=== PATIENT | female | born 1955 | race Caucasian/White ===

== ENCOUNTER → 2022-08-31 18:33 | Outpatient (CLI) | payer MEDICARE, BC, SELFPAY ==
[2022-08-31 15:26] LABS: Anion Gap 13.7 mEq/L (5-15); Blood Urea Nitrogen 18 mg/dl (7-17); Calcium 9.4 mg/dl (8.4-10.2); Carbon Dioxide 27 mmol/L (22.0-30.0); Chloride 105 mmol/L (98-107); Estimated Glomerular Filt Rate 56 ml/min (>60); GFR (African American) 67 ML/MIN (>60); Glucose 84 mg/dl (74-100); Potassium 5.7 mmoL/L (3.5-5.1); Sodium 140 mmol/L (136-145)
== END ==
PROVIDERS: PCP Physician Assistant; Visit Provider Physician Assistant
DX: R25.2 Cramp and spasm (principal)
CPT/HCPCS: 80048

== ENCOUNTER → 2022-09-02 17:06 | Outpatient (CLI) | payer MEDICARE, BC, SELFPAY ==
[2022-09-03 15:57] LABS: Blood Urea Nitrogen 18 mg/dl (7-17); Calcium 8.7 mg/dl (8.4-10.2); Carbon Dioxide 29 mmol/L (22.0-30.0); Chloride 103 mmol/L (98-107); Estimated Glomerular Filt Rate 50 ml/min (>60); GFR (African American) 60 ML/MIN (>60); Glucose 110 mg/dl (74-100); Sodium 138 mmol/L (136-145)
[2022-09-03 18:37] LABS: Anion Gap 11.7 mEq/L (5-15); Potassium 5.7 mmoL/L (3.5-5.1)
== END ==
PROVIDERS: PCP Physician Assistant; Visit Provider Physician Assistant
DX: E87.5 Hyperkalemia (principal)
CPT/HCPCS: 80048

== ENCOUNTER → 2022-09-24 14:26 | Outpatient (CLI) | payer MEDICARE, BC, SELFPAY ==
[2022-09-24 16:18] LABS: Anion Gap 9.9 mEq/L (5-15); Blood Urea Nitrogen 21 mg/dl (7-17); Calcium 9.1 mg/dl (8.4-10.2); Carbon Dioxide 27 mmol/L (22.0-30.0); Chloride 106 mmol/L (98-107); Estimated Glomerular Filt Rate 45 ml/min (>60); GFR (African American) 55 ML/MIN (>60); Glucose 86 mg/dl (74-100); Potassium 4.9 mmoL/L (3.5-5.1); Sodium 138 mmol/L (136-145)
== END ==
PROVIDERS: PCP Physician Assistant; Visit Provider Physician Assistant
DX: E87.5 Hyperkalemia (principal)
CPT/HCPCS: 80048

== ENCOUNTER → 2022-10-04 14:55 | Outpatient (CLI) | payer MEDICARE, BC, SELFPAY ==
--- NOTE | 2022-10-04 14:55 | CA_ITS ---
FINAL REPORT TECHNIQUE: Graded compression, spectral analysis and ultrasound images of the venous system of the right upper extremity were obtained. CLINICAL HISTORY: r/o DVT, RUE erythema, edema, pain, rash x 2 weeks. FINDINGS: The jugular vein, subclavian vein, axillary vein, brachial vein, cephalic vein and basilic venous system are fully compressible and demonstrate no evidence of thrombosis. IMPRESSION: No evidence of thrombosis of the venous system of the right upper extremity. Reviewed, Interpreted and Dictated by Willam Solorzano III, MD Transcribed by Kj Benjamin Authenticated and [facility]
== END ==
PROVIDERS: PCP Physician Assistant; Visit Provider Student in an Organized Health Care Education/Training Program
DX: M79.621 Pain in right upper arm (principal)
CPT/HCPCS: 93971

== ENCOUNTER → 2022-10-12 11:30 | Outpatient (CLI) | payer MEDICARE, BC, SELFPAY ==
[2022-10-12 15:19] LABS: Chloride 106 mmol/L (98-107); Potassium 4.8 mmoL/L (3.5-5.1); Sodium 137 mmol/L (136-145)
[2022-10-12 15:22] LABS: Anion Gap 9.8 mEq/L (5-15); Blood Urea Nitrogen 26 mg/dl (7-17); Calcium 8.6 mg/dl (8.4-10.2); Carbon Dioxide 26 mmol/L (22.0-30.0); Estimated Glomerular Filt Rate 45 ml/min (>60); GFR (African American) 55 ML/MIN (>60); Glucose 75 mg/dl (74-100)
== END ==
PROVIDERS: PCP Physician Assistant; Visit Provider Physician Assistant
DX: I10 Essential (primary) hypertension (principal)
CPT/HCPCS: 80048

== ENCOUNTER → 2022-10-21 09:31 | Outpatient (CLI) | payer BC, MEDICARE, SELFPAY ==
[2022-10-21 10:41] LABS: Basophils # 0.1 K/mm3 (0-0.2); Basophils % 1.1 % (0.1-2.0); Eosinophils # 0.2 K/mm3 (0.0-0.4); Eosinophils % 3.8 % (0.1-12.0); Hematocrit 38.6 % (37.0-47.0); Hemoglobin 12.5 g/dL (12.2-16.2); Lymphocytes # 1.2 K/mm3 (0.7-4.5); Lymphocytes % 24.7 % (10-50); Mean Corpuscular HGB Conc 32.5 g/dL (31.8-35.4); Mean Corpuscular Hemoglobin 27.7 pg (27.0-31.2); Mean Corpuscular Volume 85.2 fl (81-99); Mean Platelet Volume 9.1 fl (7.4-10.4); Monocytes # 0.4 K/mm3 (0.1-1.0); Monocytes % 7.7 % (1.7-9.3); Neutrophils % 62.7 % (37.0-80.0); Platelet Count 216 K/mm3 (142-424); Red Blood Count 4.53 M/mm3 (4.20-5.40); Red Cell Distribution Width 13.2 % (11.5-17.5); White Blood Count 4.8 K/mm3 (4.8-10.8)
[2022-10-21 10:59] LABS: Blood Urea Nitrogen 24 mg/dl (7-17); Calcium 8.7 mg/dl (8.4-10.2); Carbon Dioxide 25 mmol/L (22.0-30.0); Chloride 101 mmol/L (98-107); Estimated Glomerular Filt Rate 45 ml/min (>60); GFR (African American) 55 ML/MIN (>60); Glucose 83 mg/dl (74-100)
[2022-10-21 11:12] LABS: Anion Gap 11.7 mEq/L (5-15); Potassium 4.7 mmoL/L (3.5-5.1); Sodium 133 mmol/L (136-145)
== END ==
PROVIDERS: PCP Physician Assistant; Visit Provider Surgery
DX: L72.3 Sebaceous cyst (principal); Z51.81 Encounter for therapeutic drug level monitoring
CPT/HCPCS: 36415; 80048; 85025

== ENCOUNTER 2022-10-25 09:25 | Day surgery (SDC) | payer MEDICARE, BC, SELFPAY ==
[2022-10-21 10:20] VITALS: BMI 26.5
[2022-10-25 09:45] VITALS: BP 125/85; PULSE 87; RESP 18; TEMP 36.7; O2SAT 100
--- NOTE | 2022-10-25 10:27 | EXP.ANES.CKL ---
[facility] Disclaimer: The information contained in this section may have been updated after the patient was seen, as this information can be updated by other users. Medical History Arthritis Asthma GERD (gastroesophageal reflux disease) History of left heart catheterization Hypertension Hypothyroidism Osteoporosis RA (rheumatoid arthritis) Seasonal allergies Serum potassium elevated Surgical History H/O knee surgery H/O neck surgery H/O wrist surgery History of back surgery History of cholecystectomy History of hysterectomy Hx of appendectomy Family History Other Family history of cardiac disorder Social History Smoking Status: Never smoker alcohol intake: never substance use type: denies use current occupational status: employed Travel in the last 8 weeks: Inside the [place] caffeine: Yes [facility] Anesthesia Checklist Patient Identification Patient Identification: Arm Band Structural Data Admitted From: Home Planned Operative Procedure/s: Excision Sebaceous Cyst on Back Consent for Planned Operative Procedure(s) Verified: Yes Verified Documents: Surgical Consent and History and Physical NPO Status Verified Time NPO: 00:00 Additional verifications Anesthesia Reactions: No Airway Assessment C-Spine Mobility Assessed: Yes TMJ Mobility Assessed: Yes Dentition: Edentulous Neurological Assessment Level of Consciousness: Awake and Alert Anesthesia Plan Anesthesia Risk discussed: Yes Anesthesia Plan: Verified ASA Class: II Anesthesia Type: General
[2022-10-25 11:35] VITALS: BP 113/67; PULSE 90; RESP 15; TEMP 36.3; O2SAT 97
--- NOTE | 2022-10-25 11:37 | P.OP_ITS ---
Date of procedure: 10/25/22 Pre-op Diagnosis:: Sebaceous cyst on back Post-op Diagnosis:: Same Procedure performed:: Excision of sebaceous cyst on back with primary intermediate complexity closure (excisional length approximately 2.0 cm) Surgeon:: Willam Hernandez MD LIGHT FIXTURE SERVICER:: Kristal Titus Anesthesia: MAC and local Estimated blood loss (mL): 5 Operative findings:: Consistent with previously ruptured ill-defined sebaceous cyst Operative note:: Patient was taken to the operating room. She was positioned in right lateral decubitus position. Adequate intravenous sedation was achieved. The area was prepped and draped in the standard surgical fashion. Lesion was marked with a skin marker for planned wide elliptical excision. Local anesthetic was infiltrated. Full-thickness skin incision was made incorporating skin punctum and tiny palpable residual cyst with excision extending to incorporate some of the originally affected skin. Dissection was carried down sharply to normal subcutaneous tissues. Lesion was sent off as a specimen. Hemostasis was achieved with electrocautery. Wound was irrigated. Subdermal tissues were closed with several interrupted 3-0 Vicryl. Skin was closed with interrupted 3- 0 nylon. Clean dry sterile dressing was applied. Condition: stable Disposition: PACU Complications:: None immediately apparent
[2022-10-25 11:45] VITALS: BP 98/68; PULSE 85; RESP 16; O2SAT 97
[2022-10-25 11:55] VITALS: BP 109/65; PULSE 88; RESP 16; O2SAT 97
[2022-10-25 12:05] VITALS: BP 92/60; PULSE 78; RESP 16; O2SAT 94
[2022-10-25 12:15] VITALS: BP 95/58; PULSE 73; RESP 16; O2SAT 100
== END 2022-10-25 12:20 | disposition home or self-care (01) ==
PROVIDERS: PCP Physician Assistant; Visit Provider Surgery
PROC: (CPT 11403; principal; 2022-10-25 10:45)
DX: L72.0 Epidermal cyst (principal); Z79.899 Other long term (current) drug therapy
CPT/HCPCS: 11403; 12032; 88304; 96374

== ENCOUNTER → 2022-11-30 12:01 | Outpatient (CLI) | payer BC, SELFPAY ==
--- NOTE | 2022-11-30 12:08 | XR_ITS ---
FINAL REPORT CLINICAL HISTORY: cough, hard to breath x 3 weeks, non smoker FINDINGS: Two views of the chest were obtained. The heart size and pulmonary vascularity are within normal limits. The mediastinum is normal. No acute pulmonary abnormality is identified. There is no pneumothorax. The bony thorax is intact. IMPRESSION: No active cardiopulmonary disease. Reviewed, Interpreted and Dictated by Willam Solorzano III, MD Transcribed by Lyndsey Mo Authenticated and [facility]
== END ==
LOC: RAD 12:01
PROVIDERS: PCP Physician Assistant; Visit Provider Student in an Organized Health Care Education/Training Program
DX: R05.9 Cough, unspecified (principal)
CPT/HCPCS: 71046

== ENCOUNTER 2022-12-09 13:19 | Emergency (ER) | payer BC, SELFPAY ==
[2022-12-09] VITALS (11 sets, daily range): BP systolic 100–170; BP diastolic 64–96; PULSE 69–98; RESP 14–18; TEMP 36.4–36.7; O2SAT 96–100; BMI 24.7
--- NOTE | 2022-12-09 13:17 | ECG_ITS ---
APPROVED REPORT Exam: Resting ECG HR:85 bpm ECG Measurements Heart Rate 85 AXES CA 146 P 34 QRSd 89 QRS 37 QT 344 T 46 QTc 386 Conclusion SINUS RHYTHM NORMAL ECG UNCONFIRMED REPORT Electronically signed by : Kevan Bonner MD 12/09/2022 21:13:14
--- NOTE | 2022-12-09 13:22 | XR_ITS ---
FINAL REPORT CLINICAL HISTORY: dyspnea COMPARISON: 11/30/2022 FINDINGS: A single portable view of the chest was obtained. The heart size and pulmonary vascularity are within normal limits. The mediastinum is within normal limits. No acute pulmonary abnormality is identified. The bony thorax is intact. IMPRESSION: No active cardiopulmonary disease. Reviewed, Interpreted and Dictated by Willam Solorzano III, MD Transcribed by Patricia Trent Authenticated and [facility]
--- NOTE | 2022-12-09 13:22 | HMH.EDGENADL ---
Discharge Plan Disposition Patient Disposition: Home, Self-Care Prescriptions Prescriptions: No Action methylprednisolone 4 mg tablets,dose pack See Rx Instructions PO PER PKG DIR Qty: 21 0RF Rx Instructions: PO PER PKG DIR ropinirole 0.25 mg tablet 0.25 mg PO DAILY Qty: 30 0RF Rx Instructions: 1-4 PO QHS (titrate until effective for RLS) fluticasone propionate 50 mcg/actuation spray,suspension 1 spray intranasal DAILY Qty: 16 2RF Rx Instructions: administer into each nostril ropinirole 0.5 mg tablet 0.5 mg PO DAILY Qty: 30 2RF fluticasone propion-salmeterol 250-50 mcg/dose blister with device 1 inh inhalation BID omeprazole 40 mg capsule,delayed release(DR/EC) 40 mg PO DAILY levothyroxine 50 mcg tablet 50 mcg PO DAILY lisinopril 10 mg tablet 10 mg PO BID montelukast 10 mg tablet 10 mg PO HS Activity Restrictions/Add. Instructions Additional Instructions/Restrictions: Please follow-up with your primary care doctor regarding your chest pain. Additionally your creatinine was found to be 2.2 increased from a baseline of 1.2 which is an acute kidney injury. Hospitalization was offered but you opted to follow-up close with your primary care doctor regarding this. Please do not overlook this. Aggressively hydrate yourself and I will follow-up early next week at a minimum for recheck of your creatinine. Please return to the emergency department with any worsening chest pain or decreased urine output. Clinical Impressions Clinical Impression: CASSI (acute kidney injury), Chest pain Discharge ED Provider: Enrrique Yoo General Adult HPI General Chief complaint: Chest Pain Stated complaint: chest pain Time Seen by Provider: 12/09/22 13:22 History of Present Illness HPI narrative: Patient is a 67-year-old female presenting with chest pain. This began abruptly 1 hour ago located retrosternal without any radiation with associated dyspnea. No nausea associate with this no exertion associate with this. No fevers chills or cough. She states it feels if there is significant pressure on her chest. She states she has had a heart cath in the past and she has been followed by physicians in [place] has only lived in [place] since June. 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 She is never seen a blue print control clerk here in [place]. Related Data Home Medications Medication Instructions Recorded Confirmed fluticasone 250 mcg-salmeterol 50 1 inh inhalation BID allergies 10/25/22 11/30/22 mcg/dose blistr powdr for inhalation levothyroxine 50 mcg tablet 50 mcg PO DAILY thyroid 10/25/22 11/30/22 lisinopril 10 mg tablet 10 mg PO BID HTN 10/25/22 11/30/22 montelukast 10 mg tablet 10 mg PO HS allergies 10/25/22 11/30/22 omeprazole 40 mg capsule,delayed 40 mg PO DAILY Reflux/Acid reflux 10/25/22 11/30/22 release Previous Rx's Medication Instructions Recorded fluticasone propionate 50 1 spray intranasal DAILY #16 grams 11/23/22 mcg/actuation nasal spray,suspension ropinirole 0.25 mg tablet 0.25 mg PO DAILY RLS #30 tabs 11/23/22 ropinirole 0.5 mg tablet 0.5 mg PO DAILY #30 tabs 11/23/22 methylprednisolone 4 mg tablets in See Rx Instructions PO PER PKG DIR 12/01/22 a dose pack #21 tabs Allergies Allergy/AdvReac Type Severity Reaction Status Date / Time buspirone [From BuSpar] AdvReac Intermediate Verified 11/30/22 11:38 codeine AdvReac Intermediate Verified 11/30/22 11:38 morphine AdvReac Intermediate Verified 11/30/22 11:38 povidone-iodine AdvReac Intermediate Verified 11/30/22 11:38 [facility] Disclaimer: The information contained in this section may have been updated after the patient was seen, as this information can be updated by other users.
--- NOTE | 2022-12-09 13:27 | PC.NURSE ---
Xray at BS
--- NOTE | 2022-12-09 13:30 | PC.NURSE ---
XR AT BEDSIDE
[2022-12-09 13:35] LABS: Basophils # 0.1 K/mm3 (0-0.2); Basophils % 0.7 % (0.1-2.0); Eosinophils # 0.1 K/mm3 (0.0-0.4); Eosinophils % 1.5 % (0.1-12.0); Hemoglobin 12.1 g/dL (12.2-16.2); Lymphocytes # 1.6 K/mm3 (0.7-4.5); Lymphocytes % 24.8 % (10-50); Mean Corpuscular HGB Conc 31.8 g/dL (31.8-35.4); Mean Corpuscular Hemoglobin 27.9 pg (27.0-31.2); Mean Corpuscular Volume 87.8 fl (81-99); Monocytes # 0.6 K/mm3 (0.1-1.0); Monocytes % 8.8 % (1.7-9.3); Neutrophils # 4.1 K/mm3 (1.8-7.8); Neutrophils % 64.2 % (37.0-80.0); Platelet Count 249 K/mm3 (142-424); Red Blood Count 4.33 M/mm3 (4.20-5.40); White Blood Count 6.4 K/mm3 (4.8-10.8)
[2022-12-09 13:43] LABS: Chloride 101 mmol/L (98-107); Sodium 135 mmol/L (136-145)
[2022-12-09 13:46] LABS: Alanine Aminotransferase 20 U/L (12-78); Alkaline Phosphatase 80 U/L (38-126); Aspartate Amino Transferase 25 U/L (14-36); Bilirubin,Total 0.5 mg/dl (0.2-1.3); Blood Urea Nitrogen 24 mg/dl (7-17); Calcium 8.8 mg/dl (8.4-10.2); Carbon Dioxide 23 mmol/L (22.0-30.0); Estimated Glomerular Filt Rate 22 ml/min (>60); GFR (African American) 27 ML/MIN (>60); Glucose 115 mg/dl (74-100); Lipase 229 U/L (23-300); Magnesium 2.2 mg/dl (1.6-2.3)
[2022-12-09 13:47] LABS: Albumin Level 4.5 g/dl (3.5-5.0); Albumin/Globulin Ratio 1.9 (1.1-1.8); Globulin 2.4 g/dL (1.3-3.2); Total Protein,Serum 6.9 g/dl (6.3-8.2)
[2022-12-09 13:52] LABS: Activated Partial Thrombo Time 25.4 seconds (22.8-30.6); INR 1.02 (0.9-1.1)
[2022-12-09 13:56] LABS: NT Pro Brain Natriuretic Pep. 271 pg/mL (0-125)
[2022-12-09 13:58] LABS: D-Dimer 0.62 ug/mL (0.0-0.5)
[2022-12-09 14:01] LABS: Troponin I < 0.01 ng/ml (0.00-0.034)
--- NOTE | 2022-12-09 14:58 | PC.NURSE ---
Rounded on pt, no needs at this time.
--- NOTE | 2022-12-09 16:27 | PC.NURSE ---
GABRIELA EAGLE at for update on POC
[2022-12-09 17:22] LABS: Troponin I < 0.01 ng/ml (0.00-0.034)
== END 2022-12-09 18:15 | disposition home or self-care (01) ==
PROVIDERS: Emergency Provider Student in an Organized Health Care Education/Training Program; PCP Physician Assistant
DX: R07.9 Chest pain, unspecified (principal); N17.9 Acute kidney failure, unspecified
CPT/HCPCS: 36415; 71045; 80053; 83690; 83735; 83880; 84484; 85025; 85378; 85610; 85730; 93005; 96361; 99285

== ENCOUNTER → 2022-12-14 14:31 | Outpatient (CLI) | payer BC, SELFPAY ==
[2022-12-14 14:22] LABS: Chloride 97 mmol/L (98-107); Potassium 4.6 mmoL/L (3.5-5.1); Sodium 134 mmol/L (136-145)
[2022-12-14 14:25] LABS: Anion Gap 15.6 mEq/L (5-15); Blood Urea Nitrogen 19 mg/dl (7-17); Carbon Dioxide 26 mmol/L (22.0-30.0); Estimated Glomerular Filt Rate 56 ml/min (>60); GFR (African American) 67 ML/MIN (>60)
[2022-12-14 14:26] LABS: Glucose 91 mg/dl (74-100)
== END ==
PROVIDERS: PCP Physician Assistant; Visit Provider Physician Assistant
DX: N17.9 Acute kidney failure, unspecified (principal)
CPT/HCPCS: 80048

== ENCOUNTER → 2022-12-28 10:44 | Outpatient (CLI) | payer BC, SELFPAY ==
--- NOTE | 2022-12-28 10:50 | CT_ITS ---
FINAL REPORT CLINICAL HISTORY: right flank mass FINDINGS: Axial CT images of the abdomen and pelvis were obtained without intravenous contrast. Coronal reformatted images were also obtained.This study was performed with techniques to keep radiation doses as low as reasonably achievable (ALARA). Individualized dose reduction techniques using automated exposure control or adjustment of mA and/or kV according to the patient's size were employed. Abdomen: There are 2 nonobstructing right renal stones measuring approximately 5 mm. No hydronephrosis is seen. The patient is status post cholecystectomy. The liver, spleen and pancreas have an unremarkable, unenhanced appearance. No mass or adenopathy is seen. No inflammatory process is identified. Moderate vascular calcifications are noted. Pelvis: Images of the pelvis reveal no evidence of ureteral dilation or ureteral stone.No mass or abnormal fluid collection is identified. The appendix is not visualized. There are postoperative changes in the lower lumbar spine. The patient is status post hysterectomy. IMPRESSION: Nonobstructing right renal stones. No mass or inflammatory process. Reviewed, Interpreted and Dictated by Willam Solorzano III, MD Transcribed by Patricia Trent Authenticated and [facility]
== END ==
LOC: RAD 10:45
PROVIDERS: PCP Physician Assistant; Visit Provider Physician Assistant
DX: R19.00 Intra-abdominal and pelvic swelling, mass and lump, unspecified site (principal)
CPT/HCPCS: 74176

== ENCOUNTER → 2023-01-12 07:10 | Outpatient (CLI) | payer BC, SELFPAY ==
--- NOTE | 2023-01-12 | CA_ITS ---
APPROVED REPORT Exam: Exercise Treadmill Technologist: Amanda Quintana Ht: 5 ft 2 in Wt: 140 lbs BSA: 1.64 m2 HR: 71 bpm BP: 139/74 mmHg Rhythm: NSR Indications: Chest pain Medical History Medications: Lisinopril,,,,, Omeprazole,,,,, Levothyroxine,,,,, Ropinirole,,,,, Montelukast,,,,, ADVAIR,,,,, FluTICASONE,,,,, SuLFAzalazine,,,,, Stress Test Details Test: Robert HR Resting HR: 69 bpm Max Heart Rate (APMHR): 155 bpm Max HR Achieved: 149 bpm Target HR (85% APMHR): 132 bpm % of APMHR: 96 Recovery HR: 86 bpm HR response to stress: Normal HR response to stress BP Resting BP: 139.0/74.0 mmHg Max BP: 146.0/68.0 mmHg Recovery BP: 125.0/67.0 mmHg BP response to stress: Blunted blood pressure response to stress. ECG Resting ECG: Normal sinus rhythm Stress EC.[address] depression ST Change: Horizontal ST depression Arrhythmia: APC's Recovery ECG: Recovery of ST-depression > 7 minutes Clinical Exercise duration: 08:45 min Highest Stage Achieved: Exercise capacity: 10.1 METs Overall Exercise Capacity for Age: Good Stress ECG Conclusion Patient exercised 8:45 on Robert Protocol. Test stopped due to shortness of air, chest pain. Symptoms: Chest pressure/tightness with exercise, slowly resolving in recovery. Arrhythmias/Ectopy: Occasional PAC ST-T Changes: 1.[address] depression Conclusion: Good exercise capacity for age and sex. Blunted BP response to exercise. Abnormal GXT with angina and EKG changes positive for ischemia. Myoview images reported separately. Test Summary REST . . . . . . . Sitting REST . . . . . . . Standing REST 08:06 0.0 0.0 69 . 139/ 74 . . Stage 1 01:00 10.0 1.7 94 . . . . Stage 1 02:00 10.0 1.7 107 . . . . Stage 1 03:00 10.0 1.7 112 . 140/ 70 . . Stage 2 01:00 12.0 2.5 123 . . . . Stage 2 02:00 12.0 2.5 127 . . . . Stage 2 03:00 12.0 2.5 134 . 146/ 68 . . Stage 3 01:00 14.0 3.4 143 . . . . Stage 3 . . . . . . . Chest pain Stage 3 . . . . . . . Myoview Injected Stage 3 02:00 14.0 3.4 147 . . . . Stage 3 02:45 14.0 3.4 148 . . . Stop exercise at 08:45 RECOVERY . . . . . . . chest pressure RECOVERY 01:00 0.0 0.0 127 . . . . RECOVERY 02:00 0.0 0.0 101 . 130/ 72 . . RECOVERY 03:00 0.0 0.0 92 . 132/ 64 . . RECOVERY 04:00 0.0 0.0 89 . 132/ 64 . . RECOVERY 05:00 0.0 0.0 91 . 127/ 62 . . RECOVERY 06:00 0.0 0.0 86 . 127/ 62 . . RECOVERY 07:00 0.0 0.0 85 . 125/ 67 . . RECOVERY 08:00 0.0 0.0 77 . 125/ 67 . . RECOVERY 09:00 0.0 0.0 81 . 125/ 67 . . RECOVERY 10:00 0.0 0.0 75 . 125/ 67 . . RECOVERY 11:00 0.0 0.0 79 . 125/ 67 . . RECOVERY 11:23 0.0 0.0 79 . 125/ 67 . . Electronically signed by : Charlee Hathaway, 01/12/2023 23:23:54
--- NOTE | 2023-01-12 07:10 | NM_ITS ---
APPROVED REPORT Exam: Nuclear Stress Test Indication: chest pain..soa..palptations Patient Location: Outpatient Stress Tech: Amanda Quintana LORNA Tech:Miya Glass SHYAM RT(R)(N) Ht: 5 ft 2 in Wt: 135 lbs Bra Size: 38b HR: 71 bpm BP: 139/74 mmHg BSA: 1.62 m2 TID: 1.21 BMI: 24.6 History: chest pain..soa..palpitation Procedure: Patient exercised on Robert protocol 8:45 minutes and sec, resting heart rate 71 bpm, resting blood pressure 139/74 mmHg, with exercise maximum heart rate achived was 149 bpm which is 96 % of the maximum predicted heart rate and blood pressure was 146/68 mmHg. Patient has exercise capacity, achieved 10.1 METs of workload on treadmill, the blood pressure response to exercise was . Cardiac Stress and Resting SPECT Images: Cardiac Stress and Resting SPECT images were obtained using technetium 99m Myoview 32.9 mCi stress and 10.98 mCi at rest. Resting and stress imaging at supine and prone positions demonstrate a small-sized, mild, predominantly fixed perfusion defect in the distal anterior LV wall with minimal reversibility There is borderline increase in transient ischemic dilatation ratio (TID 1.21). Findings are sugestive of possible balanced ischemia or multivessel disease. Gated imaging demonstrate a low-normal global LV systolic function. LVEF is calculated at 52%. Conclusion: Small-sized, mild, predominantly fixed perfusion defect in the distal anterior LV wall with minimal reversibility Borderline increase in transient ischemic dilatation ratio (TID 1.21). Findings are sugestive of possible balanced ischemia or multivessel disease. Gated imaging demonstrate a low-normal global LV systolic function. LVEF is calculated at 52%. Electronically signed by : Charlee Hathaway, 01/12/2023 23:29:32
--- NOTE | 2023-01-12 07:27 | CT_ITS ---
FINAL REPORT TECHNIQUE: Axial images were obtained through the chest without contrast. CLINICAL HISTORY: chest pain FINDINGS: There are few small scattered mediastinal lymph nodes. The lungs are clear. The heart size is normal. There is no pericardial or pleural effusion. There is scarring in the lingula. There is a small calcified granuloma in the posterior right upper lobe. The gallbladder surgically absent. No suspicious infiltrate or nodule identified. IMPRESSION: No acute process. Reviewed, Interpreted and Dictated by Greyson Torrez MD Transcribed by Lyndsey Carroll Authenticated and [facility]
== END ==
LOC: RAD 07:10
PROVIDERS: PCP Physician Assistant; Visit Provider Physician Assistant
DX: R07.9 Chest pain, unspecified (principal); I10 Essential (primary) hypertension; K21.9 Gastro-esophageal reflux disease without esophagitis; R79.89 Other specified abnormal findings of blood chemistry
CPT/HCPCS: 71250; 78452; 93017; 93306; A9502

== ENCOUNTER 2023-01-20 07:48 | Day surgery (SDC) | payer BC, SELFPAY ==
[2023-01-20] VITALS (11 sets, daily range): BP systolic 92–140; BP diastolic 48–80; PULSE 70–90; RESP 16–20; O2SAT 92–100; BMI 25.6
--- NOTE | 2023-01-20 07:12 | IR_ITS ---
APPROVED REPORT Patient Location: Outpatient PROCEDURES Left heart catheterization Left ventriculogram Selective coronary angiogram INDICATION Angina pectoris, Abnormal CTA, Abnormal stress test Informed consent was obtained prior to the procedure. COMPLICATIONS None Estimated Blood Loss: Less than 10 mls TECHNIQUE One percent lidocaine used to anesthetize the right anterior aspect of the wrist. The right radial artery was accessed via the Seldinger technique. A 6 Upper Sorbian sheath was placed in the right radial artery. 150 mg magnesium sulfate, 800 mcg of nitroglycerin, 1mg Lidocaine and 5000 U Heparin were given through the arterial sheath. The papa catheter was also used to perform left heart catheterization, left ventriculogram and selective coronary angiogram. At the end of the procedure the sheath was removed good hemostasis was achieved using Traclet band, patient was transferred to the postop holding area in stable condition. ANGIOGRAPHIC RESULTS The left main artery Normal The left anterior descending artery Has mild proximal and mid vessel 10% luminal regularities The circumflex artery Nondominant normal The right coronary artery Has proximal 10 to 20% luminal regularities The REAGAN ventriculogram reveals Normal 65% The left ventricular end-diastolic pressure 10 mmHg IMPRESSION Mild luminal irregularities Normal ejection fraction Normal left ventricular end-diastolic pressure PLAN 1. Medical management for coronary disease Electronically signed by : Jerome Logan MD 01/20/2023 10:34:08
[2023-01-20 08:35] LABS: Basophils % 0.7 % (0.1-2.0); Eosinophils # 0.1 K/mm3 (0.0-0.4); Eosinophils % 1.9 % (0.1-12.0); Hematocrit 35.7 % (37.0-47.0); Hemoglobin 11.5 g/dL (12.2-16.2); Lymphocytes % 20.2 % (10-50); Mean Corpuscular HGB Conc 32.2 g/dL (31.8-35.4); Mean Corpuscular Hemoglobin 28.6 pg (27.0-31.2); Mean Corpuscular Volume 88.9 fl (81-99); Mean Platelet Volume 8.8 fl (7.4-10.4); Monocytes # 0.4 K/mm3 (0.1-1.0); Monocytes % 7.3 % (1.7-9.3); Neutrophils # 3.5 K/mm3 (1.8-7.8); Platelet Count 192 K/mm3 (142-424); Red Blood Count 4.02 M/mm3 (4.20-5.40); Red Cell Distribution Width 13.9 % (11.5-17.5); White Blood Count 4.9 K/mm3 (4.8-10.8)
[2023-01-20 08:39] LABS: Chloride 103 mmol/L (98-107); Sodium 139 mmol/L (136-145)
[2023-01-20 08:40] LABS: Potassium 4.6 mmoL/L (3.5-5.1)
[2023-01-20 08:42] LABS: Anion Gap 13.6 mEq/L (5-15); Blood Urea Nitrogen 19 mg/dl (7-17); Carbon Dioxide 27 mmol/L (22.0-30.0); Creatinine Clearance Estimated 56 mL/min (50-200); Estimated Glomerular Filt Rate 56 ml/min (>60); GFR (African American) 67 ML/MIN (>60)
[2023-01-20 08:43] LABS: Calcium 9.1 mg/dl (8.4-10.2); Glucose 92 mg/dl (74-100)
== END 2023-01-20 13:18 | disposition home or self-care (01) ==
PROVIDERS: PCP Physician Assistant; Visit Provider Internal Medicine
DX: I25.118 Atherosclerotic heart disease of native coronary artery with other forms of angina pectoris (principal); R94.39 Abnormal result of other cardiovascular function study; E03.9 Hypothyroidism, unspecified; Z79.899 Other long term (current) drug therapy; I10 Essential (primary) hypertension; Z82.49 Family history of ischemic heart disease and other diseases of the circulatory system; K21.9 Gastro-esophageal reflux disease without esophagitis
CPT/HCPCS: 80048; 85025; 93458; 99152; C1725; C1769; J1644

== ENCOUNTER → 2023-03-24 15:52 | Outpatient (CLI) | payer BC, SELFPAY ==
[2023-03-24 12:58] LABS: Basophils % 0.8 % (0.1-2.0); Eosinophils # 0.2 K/mm3 (0.0-0.4); Eosinophils % 3.2 % (0.1-12.0); Hematocrit 39.1 % (37.0-47.0); Hemoglobin 12.2 g/dL (12.2-16.2); Lymphocytes # 1.4 K/mm3 (0.7-4.5); Lymphocytes % 26.5 % (10-50); Mean Corpuscular HGB Conc 31.2 g/dL (31.8-35.4); Mean Corpuscular Hemoglobin 28.1 pg (27.0-31.2); Mean Platelet Volume 10.3 fl (7.4-10.4); Monocytes # 0.4 K/mm3 (0.1-1.0); Monocytes % 7.5 % (1.7-9.3); Neutrophils # 3.4 K/mm3 (1.8-7.8); Neutrophils % 62.1 % (37.0-80.0); Platelet Count 169 K/mm3 (142-424); Red Blood Count 4.35 M/mm3 (4.20-5.40); Red Cell Distribution Width 12.5 % (11.5-17.5); White Blood Count 5.5 K/mm3 (4.8-10.8)
[2023-03-24 13:41] LABS: Erythrocyte Sedimentation Rate 17 mm/hr (0-30)
[2023-03-24 13:44] LABS: Alanine Aminotransferase 27 U/L (12-78); Albumin Level 4.7 g/dl (3.5-5.0); Albumin/Globulin Ratio 1.7 (1.1-1.8); Alkaline Phosphatase 86 U/L (38-126); Anion Gap 15.8 mEq/L (5-15); Aspartate Amino Transferase 34 U/L (14-36); Bilirubin,Total 0.4 mg/dl (0.2-1.3); Blood Urea Nitrogen 18 mg/dl (7-17); Calcium 9.4 mg/dl (8.4-10.2); Carbon Dioxide 25 mmol/L (22.0-30.0); Chloride 106 mmol/L (98-107); Estimated Glomerular Filt Rate 45 ml/min (>60); GFR (African American) 55 ML/MIN (>60); Globulin 2.7 g/dL (1.3-3.2); Glucose 87 mg/dl (74-100); Magnesium 2.1 mg/dl (1.6-2.3); Potassium 5.8 mmoL/L (3.5-5.1); Sodium 141 mmol/L (136-145); Total Protein,Serum 7.4 g/dl (6.3-8.2)
[2023-03-24 13:51] LABS: Creatine Kinase MB 1.8 ng/ml (0.0-2.03)
[2023-03-24 14:05] LABS: C-Reactive Protein 0.7 mg/L (0-4)
[2023-03-24 14:32] LABS: Vitamin B12 383 pg/mL (239-931)
[2023-03-24 14:54] LABS: Ferritin 26.2 ng/ml (11.1-264)
== END ==
PROVIDERS: PCP Physician Assistant; Visit Provider Physician Assistant
DX: M62.838 Other muscle spasm (principal); E87.5 Hyperkalemia
CPT/HCPCS: 80053; 82553; 82607; 82728; 83735; 85025; 85651; 86140

== ENCOUNTER 2023-03-31 12:49 | Emergency (ER) | payer BC, SELFPAY ==
[2023-03-31 13:38] VITALS: BP 124/69; PULSE 89; RESP 18; TEMP 36.8; O2SAT 97; BMI 25.6
--- NOTE | 2023-03-31 14:04 | EXP.UTC ---
Discharge Plan Disposition Patient Disposition: Home, Self-Care Condition: Good Prescriptions Prescriptions: New ondansetron 4 mg Tablet,Disintegrating 4 mg PO Q8H PRN (Reason: Nausea) Qty: 12 0RF No Action aspirin [Adult Low Dose Aspirin] 81 mg tablet,delayed release (DR/EC) 81 mg PO DAILY Qty: 30 2RF ropinirole 0.25 mg tablet 0.25 mg PO DAILY Qty: 30 0RF Rx Instructions: 1-4 PO QHS (titrate until effective for RLS) pregabalin [Lyrica] 75 mg capsule 75 mg PO BID Qty: 60 0RF rosuvastatin 10 mg tablet See Rx Instructions .ROUTE .COMPLEX Qty: 90 3RF Dose Instruction: Take 1 tablet by mouth once daily Rx Instructions: Take 1 tablet by mouth once daily pramipexole [Mirapex] 0.5 mg tablet 0.5 mg PO BID Qty: 30 2RF fluticasone propion-salmeterol 250-50 mcg/dose blister with device 1 inh inhalation BID omeprazole 40 mg capsule,delayed release(DR/EC) 40 mg PO DAILY levothyroxine 50 mcg tablet 50 mcg PO DAILY lisinopril 10 mg tablet 10 mg PO BID montelukast 10 mg tablet 10 mg PO HS fluticasone propionate 50 mcg/actuation spray,suspension 1 spray intranasal DAILY Rx Instructions: administer into each nostril Referrals Follow up/Referrals: Berna Khan PA [Primary Care Provider] - See instructions Activity Restrictions/Add. Instructions Additional Instructions/Restrictions: Drink plenty of fluids. Take the zofran for nausea/vomiting. Follow up with your regular doctor. GO TO THE ER FOR ANY WORSENING SYMPTOMS Clinical Impressions Clinical Impression: Gastroenteritis Stand Alone Forms Stand Alone Forms: Work/School Release Instructions Patient Instructions: Viral Gastroenteritis, DI for Viral Gastroenteritis -- Adult, Ondansetron Discharge ED Provider: Jer Agustin [facility] General Stated complaint: lightheaded, vomiting, almost passed out Mode of Arrival: Ambulatory Source of Information: Patient Limitations: No Limitations Time Seen by Provider: 03/31/23 13:39 Description of Symptoms (Recalled from Triage Doc. by RN): Patient reports being dizzy, lightheaded, vomiting, can't eat or drink and feels like she could pass out. Patient reports that started Tuesday. HEENT Symptoms (Recalled from RN notes): Yes Resp Symptoms (Recalled from RN notes): No Skin Symptoms (Recalled from RN notes): No MS Symptoms (Recalled from RN notes): No Functional Status (Recalled from RN notes): wnl History of Present Illness Provider Complaint: She states that for the past 1 day she has had n/v/d. Today, she began to feel lightheaded after standing up. She has vomited x2 today and she continues to have diarrhea. She denies abdominal pain. Related Data Home Medications Medication Instructions Recorded Confirmed fluticasone 250 mcg-salmeterol 50 1 inh inhalation BID allergies 10/25/22 03/24/23 mcg/dose blistr powdr for inhalation levothyroxine 50 mcg tablet 50 mcg PO DAILY thyroid 10/25/22 03/24/23 lisinopril 10 mg tablet 10 mg PO BID HTN 10/25/22 03/24/23 montelukast 10 mg tablet 10 mg PO HS allergies 10/25/22 03/24/23 omeprazole 40 mg capsule,delayed 40 mg PO DAILY Reflux/Acid reflux 10/25/22 03/24/23 release fluticasone propionate 50 1 spray intranasal DAILY allergies 01/20/23 03/24/23 mcg/actuation nasal spray,suspension Previous Rx's Medication Instructions Recorded ropinirole 0.25 mg tablet 0.25 mg PO DAILY RLS #30 tabs 11/23/22 aspirin 81 mg tablet,delayed 81 mg PO DAILY #30 tabs 02/08/23 release (Adult Low Dose Aspirin) rosuvastatin 10 mg tablet See Rx Instructions .Route 03/04/23 .COMPLEX #90 tabs pregabalin 75 mg capsule (Lyrica) 75 mg PO BID #60 caps 03/24/23 pramipexole 0.5 mg tablet (Mirapex) 0.5 mg PO BID #30 tabs 03/28/23 ondansetron 4 mg disintegrating 4 mg PO Q8H PRN Nausea #12 tabs 03/31/23 tablet Allergies Allergy/AdvReac Type Severity Reaction Status Date
[2023-03-31 15:16] VITALS: BP 124/69; PULSE 89; RESP 18; TEMP 36.8; O2SAT 97
== END 2023-03-31 15:18 | disposition home or self-care (01) ==
PROVIDERS: Emergency Provider Nurse Practitioner Family; PCP Physician Assistant
DX: K52.9 Noninfective gastroenteritis and colitis, unspecified (principal); R11.2 Nausea with vomiting, unspecified; R42 Dizziness and giddiness; R19.7 Diarrhea, unspecified; I25.10 Atherosclerotic heart disease of native coronary artery without angina pectoris; I11.9 Hypertensive heart disease without heart failure; K21.9 Gastro-esophageal reflux disease without esophagitis; E03.9 Hypothyroidism, unspecified; M06.9 Rheumatoid arthritis, unspecified
CPT/HCPCS: 99204; 99212; G0463

== ENCOUNTER → 2023-04-07 08:43 | Outpatient (POV) | payer BC, SELFPAY ==
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
[2023-04-07 09:09] VITALS: BP 116/78; PULSE 70; RESP 18; O2SAT 100; BMI 25.7
== END ==
PROVIDERS: PCP Physician Assistant; Visit Provider Nurse Practitioner Family
DX: M54.42 Lumbago with sciatica, left side (principal); G89.29 Other chronic pain; M46.1 Sacroiliitis, not elsewhere classified; M54.16 Radiculopathy, lumbar region
CPT/HCPCS: 99202; G0463

== ENCOUNTER → 2023-04-22 07:46 | Outpatient (CLI) | payer BC, SELFPAY ==
--- NOTE | 2023-04-22 07:54 | CA_ITS ---
FINAL REPORT CLINICAL HISTORY: PAIN,NUMBNESS RIGHT WRIST SINCE CATH IN 02/04 COMPARISON: None FINDINGS: Spectral and Doppler waveform evaluations of the right wrist was performed. Spectral analysis was performed. Radial arteries are patent. There is no evidence of pseudoaneurysm or thrombus. IMPRESSION: No pseudoaneurysm or thrombus. Reviewed, Interpreted and Dictated by Willam Solorzano III, MD Transcribed by Izabela Brown Authenticated and [facility]
== END ==
LOC: RT 07:47
PROVIDERS: PCP Physician Assistant; Visit Provider Internal Medicine
DX: M25.531 Pain in right wrist (principal); R20.0 Anesthesia of skin; R20.2 Paresthesia of skin
CPT/HCPCS: 93931

== ENCOUNTER 2023-06-08 16:35 | Emergency (ER) | payer BC, SELFPAY ==
--- NOTE | 2023-06-08 16:38 | XR_ITS ---
PROCEDURE INFORMATION: Exam: XR Left Hand Exam date and time: 06/08/2023 4:40 PM Age: 68 years old Clinical indication: Injury or trauma; Blunt trauma (contusions or hematomas); Patient HX: Pain in left hand after fall yesterday. TECHNIQUE: Imaging protocol: Radiologic exam of the left hand. Views: 3 or more views. COMPARISON: No relevant prior studies available. FINDINGS: Bones/joints: No visible fracture or dislocation. Soft tissues: Normal. IMPRESSION: No visible fracture or dislocation.
--- NOTE | 2023-06-08 16:38 | XR_ITS ---
PROCEDURE INFORMATION: Exam: XR Left Wrist Exam date and time: 06/08/2023 4:42 PM Age: 68 years old Clinical indication: Injury or trauma; Blunt trauma (contusions or hematomas); Patient HX: Left wrist pain after fall yesterday. TECHNIQUE: Imaging protocol: Radiologic exam of the left wrist. Views: 3 or more views. COMPARISON: CR XR HAND LT MIN 3V 06/08/2023 4:40 PM FINDINGS: Bones/joints: No visible fracture or dislocation. No significant periarticular erosive changes to suggest inflammatory arthritis. Soft tissues: Normal. IMPRESSION: 1. No visible fracture or dislocation. 2. No significant periarticular erosive changes to suggest inflammatory arthritis.
[2023-06-08 16:45] VITALS: BP 140/72; PULSE 73; RESP 18; TEMP 36.6; O2SAT 98; BMI 25.6
--- NOTE | 2023-06-08 16:51 | EXP.UTC ---
Discharge Plan Disposition Patient Disposition: Home, Self-Care Condition: Good Prescriptions Prescriptions: No Action pregabalin 75 mg capsule 75 mg PO TID Patient Comments: TAKE 1 CAPSULE BY MOUTH THREE TIMES DAILY omeprazole 40 mg capsule,delayed release(DR/EC) 40 mg PO DAILY levothyroxine 50 mcg tablet 50 mcg PO DAILY lisinopril 10 mg tablet 10 mg PO BID fluticasone propionate 50 mcg/actuation spray,suspension 1 spray intranasal DAILY Rx Instructions: administer into each nostril aspirin [Adult Low Dose Aspirin] 81 mg tablet,delayed release (DR/EC) 81 mg PO DAILY rosuvastatin 10 mg tablet See Rx Instructions .ROUTE .COMPLEX Rx Instructions: Take 1 tablet by mouth once daily fluticasone propion-salmeterol [Advair Diskus] 250-50 mcg/dose blister with device 1 ea INHALATION BID Patient Comments: INHALE 1 PUFF BY MOUTH TWICE DAILY cetirizine 10 mg tablet 10 mg PO DAILY Patient Comments: TAKE 1 TABLET BY MOUTH ONCE DAILY Referrals Follow up/Referrals: Berna Khan PA [Primary Care Provider] - See instructions Valdez Collado DO [Staff Physician] - See instructions Activity Restrictions/Add. Instructions Additional Instructions/Restrictions: Rest the extremity, apply ice for 15 minutes as tolerated three or four times per day, Elevate the extremity as tolerated while you are resting. Follow up with Dr. Collado (orthopedics). Sometimes there can be fractures that don't show up well on the first set of x-rays. So, you should follow up if you continue to have symptoms. I put in a referral but you need to call his office and schedule an appointment. Follow up with your regular doctor. GO TO THE ER FOR ANY WORSENING SYMPTOMS Clinical Impressions Clinical Impression: Left wrist sprain Instructions Patient Instructions: Wrist Sprain, DI for Wrist Sprain Discharge ED Provider: Jer Agustin [facility] General Stated complaint: AO fall 06/07, left wrist pain Time Seen by Provider: 06/08/23 16:51 History of Present Illness Provider Complaint: She states that on 06/07 she fell and came down on her right hand and wrist. Since then she has had pain in that wrist with movement. She denies any other injury. She came in today to have it checked for a fracture because it doesn't seem to be getting better. Related Data Home Medications Medication Instructions Recorded Confirmed levothyroxine 50 mcg tablet 50 mcg PO DAILY thyroid 10/25/22 06/08/23 lisinopril 10 mg tablet 10 mg PO BID HTN 10/25/22 06/08/23 omeprazole 40 mg capsule,delayed 40 mg PO DAILY Reflux/Acid reflux 10/25/22 06/08/23 release fluticasone propionate 50 1 spray intranasal DAILY allergies 01/20/23 05/17/23 mcg/actuation nasal spray,suspension aspirin 81 mg tablet,delayed 81 mg PO DAILY Blood Thinner 04/07/23 05/17/23 release (Adult Low Dose Aspirin) rosuvastatin 10 mg tablet See Rx Instructions .Route 04/07/23 06/08/23 .COMPLEX Cholesterol pregabalin 75 mg capsule 75 mg PO TID 05/03/23 06/08/23 cetirizine 10 mg tablet 10 mg PO DAILY allergies 06/08/23 06/08/23 fluticasone 250 mcg-salmeterol 50 1 ea inhalation BID asthma 06/08/23 06/08/23 mcg/dose blistr powdr for inhalation (Advair Diskus) Allergies Allergy/AdvReac Type Severity Reaction Status Date / Time Iodinated Contrast Media Allergy Verified 06/08/23 16:52 iodine Allergy Verified 06/08/23 16:52 buspirone [From BuSpar] AdvReac Intermediate Verified 06/08/23 16:52 codeine AdvReac Intermediate Verified 06/08/23 16:52 morphine AdvReac Intermediate Verified 06/08/23 16:52 [facility] Disclaimer: The information contained in this section may have been updated after the patient was seen, as this information can be updated by other users. Medical History Abnormal result of cardiovascular function study Kapil
[2023-06-08 17:53] VITALS: BP 140/72; PULSE 73; RESP 18; TEMP 36.6; O2SAT 98
== END 2023-06-08 17:52 | disposition home or self-care (01) ==
PROVIDERS: Emergency Provider Nurse Practitioner Family; PCP Physician Assistant
DX: S63.502A Unspecified sprain of left wrist, initial encounter (principal); I25.10 Atherosclerotic heart disease of native coronary artery without angina pectoris; J45.909 Unspecified asthma, uncomplicated; K21.9 Gastro-esophageal reflux disease without esophagitis; I11.9 Hypertensive heart disease without heart failure; E03.9 Hypothyroidism, unspecified; W19.XXXA Unspecified fall, initial encounter
CPT/HCPCS: 73110; 73130; 99212; 99214; G0463

== ENCOUNTER 2023-09-10 19:00 | Emergency (ER) | payer BC, SELFPAY ==
[2023-09-10 19:05] VITALS: BP 112/69; PULSE 77; RESP 18; TEMP 36.6; O2SAT 96; BMI 24.7
--- NOTE | 2023-09-10 19:17 | EXP.UTC ---
Discharge Plan Disposition Patient Disposition: Home, Self-Care Condition: Good Prescriptions Prescriptions: New prednisone [prednisone] 20 mg tablet 20 mg PO BID Qty: 10 0RF No Action pregabalin 75 mg capsule 75 mg PO TID Patient Comments: TAKE 1 CAPSULE BY MOUTH THREE TIMES DAILY triamcinolone acetonide 0.1 % ointment 1 applic topical BID Qty: 15 0RF levothyroxine 50 mcg tablet 50 mcg PO DAILY Qty: 90 0RF lisinopril 10 mg tablet 10 mg PO BID Qty: 90 0RF omeprazole 40 mg capsule,delayed release(DR/EC) 40 mg PO DAILY fluticasone propionate 50 mcg/actuation spray,suspension 1 spray intranasal DAILY Rx Instructions: administer into each nostril aspirin [Adult Low Dose Aspirin] 81 mg tablet,delayed release (DR/EC) 81 mg PO DAILY rosuvastatin 10 mg tablet See Rx Instructions .ROUTE .COMPLEX Rx Instructions: Take 1 tablet by mouth once daily fluticasone propion-salmeterol [Advair Diskus] 250-50 mcg/dose blister with device 1 ea INHALATION BID Patient Comments: INHALE 1 PUFF BY MOUTH TWICE DAILY cetirizine 10 mg tablet 10 mg PO DAILY Patient Comments: TAKE 1 TABLET BY MOUTH ONCE DAILY Referrals Follow up/Referrals: Berna Khan PA [Primary Care Provider] - See instructions Activity Restrictions/Add. Instructions Additional Instructions/Restrictions: if symptoms worsen retrun follow up with pcp steroids as ordered rotate heat and ice Clinical Impressions Clinical Impression: Muscle strain Stand Alone Forms Stand Alone Forms: Work/School Release Instructions Patient Instructions: DI for Muscle Strain [facility]charge [facility]Natacha [facility] HPI General Stated complaint: sharp pain lower back Mode of Arrival: Ambulatory Source of Information: Patient Limitations: No Limitations Time Seen by Provider: 09/10/23 19:23 Description of Symptoms (Recalled from Triage Doc. by RN): Pt bend down to get dishes out of vinegar maker and as she lifted up she has a sharp pain in lower back. HEENT Symptoms (Recalled from RN notes): No Resp Symptoms (Recalled from RN notes): No Skin Symptoms (Recalled from RN notes): No MS Symptoms (Recalled from RN notes): Yes Functional Status (Recalled from RN notes): n/a History of Present Illness Provider Complaint: 68 yr old female presents for low back pain. Pt bend down to get dishes out of vinegar maker and as she lifted up she has a sharp pain in lower back. pt states pain 05/24. pt does not want muscle relaxers. no loss of bowel or bladder Related Data Home Medications Medication Instructions Recorded Confirmed omeprazole 40 mg capsule,delayed 40 mg PO DAILY Reflux/Acid reflux 10/25/22 07/29/23 release fluticasone propionate 50 1 spray intranasal DAILY allergies 01/20/23 07/29/23 mcg/actuation nasal spray,suspension aspirin 81 mg tablet,delayed 81 mg PO DAILY Blood Thinner 04/07/23 07/29/23 release (Adult Low Dose Aspirin) rosuvastatin 10 mg tablet See Rx Instructions .Route 04/07/23 07/29/23 .COMPLEX Cholesterol pregabalin 75 mg capsule 75 mg PO TID 05/03/23 07/29/23 cetirizine 10 mg tablet 10 mg PO DAILY allergies 06/08/23 07/29/23 fluticasone 250 mcg-salmeterol 50 1 ea inhalation BID asthma 06/08/23 07/29/23 mcg/dose blistr powdr for inhalation (Advair Diskus) Previous Rx's Medication Instructions Recorded triamcinolone acetonide 0.1 % 1 applic topical BID #15 grams 07/29/23 topical ointment levothyroxine 50 mcg tablet 50 mcg PO DAILY thyroid #90 tabs 08/22/23 lisinopril 10 mg tablet 10 mg PO BID HTN #90 tabs 08/31/23 prednisone 20 mg tablet 20 mg PO BID #10 tabs 09/10/23 Allergies Allergy/AdvReac Type Severity Reaction Status Date / Time Iodinated Contrast Media Allergy Verified 09/10/23 19:17 iodine Allergy Verified 09/10/23 19:17 buspirone [From BuSpar] AdvReac Intermediate Verified 09/10/23 19:17 codeine AdvReac Intermediate Verified 09/10/23 19:17 morphine AdvReac Intermediate Verified 09/10/23 19:17 Worker's Comp Is this a Worker's Comp case?: No [facility] Disclaimer: The information contained in this section may have been updated after the patient was seen, as this information can be updated by other users. Medical History , [employer]) Abnormal result of cardiovascular function study Arthritis Asthma Coronary artery disease GERD (gastroesophageal reflux disease) History of left heart catheterization Hypertension Hypothyroidism Numbness and tingling in right hand Osteoporosis RA (rheumatoid arthritis) Right wrist pain Seasonal allergies Serum potassium elevated Typical angina Surgical History , [employer]) H/O knee surgery H/O neck surgery H/O wrist surgery History of back surgery History of cholecystectomy History of hysterectomy Hx of appendectomy Family History , [employer]) Family history of cardiac disorder Social History , [employer]) Smoking Status: Never smoker alcohol intake: never substance use type: denies use current occupational status: retired Travel in the last 8 weeks: None caffeine: Yes ROS Obtained: Yes All systems reviewed & no additional complaints except as documented Constitutional Constitutional: Reports system reviewed and no additional complaints, except as documented Eyes Eyes: Reports system reviewed and no additional complaints, except as documented ENT Ears, Nose, Mouth, and Throat: Reports system reviewed and no additional complaints, except as documented Cardiovascular Cardiovascular: Reports system reviewed and no additional complaints, except as documented Respiratory Respiratory: Reports system reviewed and no additional complaints, except as documented Musculoskeletal Musculoskeletal: Reports system reviewed and no additional complaints, except as documented, Reports as per HPI, Reports arthralgias, Reports back pain, Reports muscle cramps and Reports myalgias Integumentary/Breasts Skin/Breast: Reports system reviewed and no additional complaints, except as documented Neurologic Neurologic: Reports system reviewed and no additional complaints, except as documented Endocrine Endocrine: Reports system reviewed and no additional complaints, except as documented Hematologic/Lymphatic Henatologic/Lymphatic: Reports system reviewed and no additional complaints, except as documented Allergic/Immunologic Allergic/Immunologic: Reports system reviewed and no additional complaints, except as documented Physical Exam General General appearance: alert and in no apparent distress Head Head exam: atraumatic Eye Eye exam: Present normal appearance and PERRL ENT ENT exam: Present normal exam Respiratory Respiratory exam: Present normal lung sounds bilaterally Cardiovascular Cardiovascular exam: Present regular rate and normal rhythm Back Exam Back exam: Present tenderness and muscle spasm Back 1 view image: 1. pain, tednerness Neurological Exam Neurological exam: Present alert and oriented X3 Skin Skin exam: Present warm Medical Decision Making Medical Records Medical records reviewed: Yes I reviewed the patient's medical records. Zenon Inquiry Pt receiving controlled substance: No Zenon was queried for this patient: No Vital Signs: 09/10/23 19:05 Temperature 97.9 F Temperature Source Oral Pulse Rate [Right Radial] 77 Respiratory Rate 18 Blood Pressure [Right Arm] 112/69 Blood Pressure Mean [Right Arm] 83 Blood Pressure Source [Right Arm] Automatic Cuff Blood Pressure Position [Right Arm] Sitting 02 Sat by Pulse Oximetry 96 Oxygen Delivery Method Room Air
--- NOTE | 2023-09-10 19:21 | XR_ITS ---
PROCEDURE INFORMATION: Exam: XR Lumbosacral Spine Exam date and time: 09/10/2023 7:37 PM Age: 68 years old Clinical indication: Low back pain TECHNIQUE: Imaging protocol: Radiologic exam of the lumbosacral spine. Views: 2 or 3 views. COMPARISON: CT ABDOMEN PELVIS WO CON 12/28/2022 10:52 AM FINDINGS: Bones/joints: Orthopedic device noted in the posterior elements centered at the L4 level of the lumbar spine. No vertebral body compression or acute fracture. Significant multilevel facet arthropathy noted throughout the lumbar spine. Disc spaces are well-maintained Soft tissues: Unremarkable. Vasculature: Moderate atherosclerotic calcification of the iliac arteries. IMPRESSION: No acute abnormality
[2023-09-10] MEDS: DEXAMETHASONE 4MG/ML 1ML VIAL 4 MG IM (19:27)
[2023-09-10] MEDS: KETOROLAC 30MG/ML VIAL 15 MG IM (19:27)
[2023-09-10 21:20] VITALS: BP 112/69; PULSE 77; RESP 18; TEMP 36.6; O2SAT 95
== END 2023-09-10 19:53 | disposition home or self-care (01) ==
PROVIDERS: Emergency Provider Nurse Practitioner Family; PCP Physician Assistant
DX: S39.012A Strain of muscle, fascia and tendon of lower back, initial encounter (principal); M62.830 Muscle spasm of back; X50.0XXA Overexertion from strenuous movement or load, initial encounter; K21.9 Gastro-esophageal reflux disease without esophagitis; E03.9 Hypothyroidism, unspecified; I11.9 Hypertensive heart disease without heart failure; I25.119 Atherosclerotic heart disease of native coronary artery with unspecified angina pectoris; M06.9 Rheumatoid arthritis, unspecified
CPT/HCPCS: 72100; 96372; 99212; 99214; G0463

== ENCOUNTER 2023-09-19 10:48 | Emergency (ER) | payer BC, SELFPAY ==
--- NOTE | 2023-09-19 11:06 | EXP.UTC ---
Discharge Plan Disposition Patient Disposition: Home, Self-Care Condition: Good Prescriptions Prescriptions: New cyclobenzaprine 10 mg Tablet 10 mg PO BID PRN (Reason: Muscle Spasm) Qty: 20 0RF methylprednisolone 4 mg Tablets,Dose Pack 4 mg PO DIRECTED 6 Days Qty: 21 0RF Rx Instructions: Take 1 pack as directed for 6 days No Action pregabalin 75 mg capsule 75 mg PO TID Patient Comments: TAKE 1 CAPSULE BY MOUTH THREE TIMES DAILY triamcinolone acetonide 0.1 % ointment 1 applic topical BID Qty: 15 0RF levothyroxine 50 mcg tablet 50 mcg PO DAILY Qty: 90 0RF lisinopril 10 mg tablet 10 mg PO BID Qty: 90 0RF prednisone [prednisone] 20 mg tablet 20 mg PO BID Qty: 10 0RF omeprazole 40 mg capsule,delayed release(DR/EC) 40 mg PO DAILY fluticasone propionate 50 mcg/actuation spray,suspension 1 spray intranasal DAILY Rx Instructions: administer into each nostril aspirin [Adult Low Dose Aspirin] 81 mg tablet,delayed release (DR/EC) 81 mg PO DAILY rosuvastatin 10 mg tablet See Rx Instructions .ROUTE .COMPLEX Rx Instructions: Take 1 tablet by mouth once daily fluticasone propion-salmeterol [Advair Diskus] 250-50 mcg/dose blister with device 1 ea INHALATION BID Patient Comments: INHALE 1 PUFF BY MOUTH TWICE DAILY cetirizine 10 mg tablet 10 mg PO DAILY Patient Comments: TAKE 1 TABLET BY MOUTH ONCE DAILY Referrals Follow up/Referrals: Berna Khan PA [Primary Care Provider] - See instructions Activity Restrictions/Add. Instructions Additional Instructions/Restrictions: Go home and rest. It would be best if you rested tomorrow too. No heavy lifting. No twisting. Take the oral medications as directed. The muscle relaxer (cyclobenzaprine--Flexeril) will make you drowsy, so don't drive or operate heavy machinery after taking it. Don't start the oral steroids (medrol dose pack) until tomorrow, since you had the shots in here today. Follow up with your regular doctor. GO TO THE ER FOR ANY WORSENING SYMPTOMS OR CONCERN, ESPECIALLY BOWEL OR BLADDER ISSUES, SADDLE AREA NUMBNESS, FEVER, ETC Clinical Impressions Clinical Impression: Low back pain with left-sided sciatica Discharge ED Provider: [place] Agustin [facility] [place] General Stated complaint: continued back pain Time Seen by Provider: 09/19/23 11:06 History of Present Illness Provider Complaint: She states that she has continued to have low back pain that radiates down her left leg despite being seen her several days ago and being prescribed prednisone. She states that she has a long history of episodes of this type of pain. She has a history of having 2 low back surgeries related to her history of degenerative disk disease. She states that ususally she needs to have steroid injections into her lower back for this pain. She recently moved here from [place]. She has not saw her back specialist (in [place]) in over 1 year to have those injections. She denies any urinary symptoms or any other symptoms. She denies fever/chills. She denies any recent falls or trauma. Related Data Home Medications Medication Instructions Recorded Confirmed omeprazole 40 mg capsule,delayed 40 mg PO DAILY Reflux/Acid reflux 10/25/22 07/29/23 release fluticasone propionate 50 1 spray intranasal DAILY allergies 01/20/23 07/29/23 mcg/actuation nasal spray,suspension aspirin 81 mg tablet,delayed 81 mg PO DAILY Blood Thinner 04/07/23 07/29/23 release (Adult Low Dose Aspirin) rosuvastatin 10 mg tablet See Rx Instructions .Route 04/07/23 07/29/23 .COMPLEX Cholesterol pregabalin 75 mg capsule 75 mg PO TID 05/03/23 07/29/23 cetirizine 10 mg tablet 10 mg PO DAILY allergies 06/08/23 07/29/23 fluticasone 250 mcg-salmeterol 50 1 ea inhalation BID asthma 06/08/23 07/29/23 mcg/dose blistr powdr for inhalation (Advair Diskus) Previous Rx's Medication Instructions Recorded triamcinolone acetonide 0.1 % 1 applic topical BID #15 grams 07/29/23 topical ointment levothyroxine 50 mcg tablet 50 mcg PO DAILY thyroid #90 tabs 08/22/23 lisinopril 10 mg tablet 10 mg PO BID HTN #90 tabs 08/31/23 prednisone 20 mg tablet 20 mg PO BID #10 tabs 09/10/23 cyclobenzaprine 10 mg tablet 10 mg PO BID PRN Muscle Spasm #20 09/19/23 tabs methylprednisolone 4 mg tablets in 4 mg PO DIRECTED 6 days #21 tabs 09/19/23 a dose pack Allergies Allergy/AdvReac Type Severity Reaction Status Date / Time Iodinated Contrast Media Allergy Verified 09/19/23 11:18 iodine Allergy Verified 09/19/23 11:18 buspirone [From BuSpar] AdvReac Intermediate Verified 09/19/23 11:18 codeine AdvReac Intermediate Verified 09/19/23 11:18 morphine AdvReac Intermediate Verified 09/19/23 11:18 PFSH [facility] Disclaimer: The information contained in this section may have been updated after the patient was seen, as this information can be updated by other users. Medical History , [employer] [place]) Abnormal result of cardiovascular function study Arthritis Asthma Coronary artery disease GERD (gastroesophageal reflux disease) History of left heart catheterization Hypertension Hypothyroidism Numbness and tingling in right hand Osteoporosis RA (rheumatoid arthritis) Right wrist pain Seasonal allergies Serum potassium elevated Typical angina Surgical History , [employer] [place]) H/O knee surgery H/O neck surgery H/O wrist surgery History of back surgery History of cholecystectomy History of hysterectomy Hx of appendectomy Family History , [employer] [place]) Family history of cardiac disorder Social History , [employer] [place]) Smoking Status: Never smoker alcohol intake: never substance use type: denies use current occupational status: retired Travel in the last 8 weeks: None caffeine: Yes ROS Obtained: Yes All systems reviewed & no additional complaints except as documented Constitutional Constitutional: Denies chills and Denies fever(s) Eyes Eyes: Denies eye discharge ENT Ears, Nose, Mouth, and Throat: Denies dizziness, Denies otalgia and Denies sore throat Cardiovascular Cardiovascular: Denies chest pain, Denies dyspnea and Denies dyspnea on exertion Respiratory Respiratory: Denies shortness of breath, Denies chest congestion, Denies cough, Denies dyspnea, Denies dyspnea on exertion, Denies stridor and Denies wheezing Gastrointestinal Gastrointestingal: Denies nausea or vomiting Genitourinary Female Genitourinary: Denies dysuria, Denies urinary frequency, Denies urinary incontinence, Denies urinary hesitancy and Denies urinary urgency Musculoskeletal Musculoskeletal: Reports system reviewed and no additional complaints, except as documented and Denies arthralgias Integumentary/Breasts Skin/Breast: Denies rash Neurologic Neurologic: Denies dizziness and Denies paresthesias Allergic/Immunologic Allergic/Immunologic: Denies wheezing Physical Exam General General appearance: alert and in no apparent distress Head Head exam: atraumatic, normocephalic and normal inspection Eye Eye exam: Present normal appearance, PERRL and EOMI ENT ENT exam: Present normal exam, normal oropharynx, mucous membranes moist, TM's normal bilaterally and normal external ear exam Neck Neck exam: Present normal inspection, full ROM and trachea midline; Absent meningismus or lymphadenopathy Chest Chest inspection: Present normal inspection and symmetric chest wall rise; Absent tenderness Respiratory Respiratory exam: Present normal lung sounds bilaterally; Absent respiratory distress Cardiovascular Cardiovascular exam: Present regular rate and normal rhythm; Absent JVD Abdominal Exam Abdominal exam: Present soft and normal bowel sounds; Absent distention, tenderness or guarding Extremities Exam Extremities exam: Present normal inspection, full ROM and normal capillary refill; Absent calf tenderness Back Exam Back exam: Present normal inspection; Absent tenderness Neurological Exam Neurological exam: Present alert, oriented X3, CN II-XII intact, normal gait and reflexes normal; Absent motor sensory deficit Expanded Neurological Exam Cranial nerves: Normal: EOM function (II, III, IV, ), facial sensation (V), facial palsy (VII), gag reflex (IX), spinal accessory function (XI) and tongue deviation (XII) Cerebellar function: normal gait Motor strength - LUE: 5/5 Motor strength - RUE: 5/5 Motor strength - LLE: 5/5 Motor strength - RLE: 5/5 Sensory exam upper extremity: Normal: light touch and 2 point discrimination Sensory exam lower extremity: Normal: light touch and 2 point discrimination DTR: 2+: biceps (L), biceps (R), patellar (L), patellar (R), Achilles tendon (L) and Achilles tendon (R) Spinal cord function: Absent saddle anesthesia Psychiatric Psychiatric exam: Present normal affect and normal mood Skin Skin exam: Present warm, dry, intact and normal color Lymphatic Lymphatic Findings: no adenopathy Medical Decision Making Medical Records Medical records reviewed: No I reviewed the patient's medical records. Zenon Inquiry Pt receiving controlled substance: No
[2023-09-19 11:11] VITALS: BP 86/56; PULSE 78; RESP 14; TEMP 36.7; O2SAT 99; BMI 24.7
[2023-09-19] MEDS: DEXAMETHASONE 4MG/ML 1ML VIAL 8 MG IM (11:25)
[2023-09-19] MEDS: KETOROLAC 60MG/2ML VIAL 30 MG IM (11:26)
[2023-09-19 11:46] VITALS: BP 85/50; PULSE 74; RESP 16; TEMP 36.7
== END 2023-09-19 11:54 | disposition home or self-care (01) ==
PROVIDERS: Emergency Provider Nurse Practitioner Family; PCP Physician Assistant
DX: M54.42 Lumbago with sciatica, left side (principal); M06.9 Rheumatoid arthritis, unspecified; I11.9 Hypertensive heart disease without heart failure; I25.119 Atherosclerotic heart disease of native coronary artery with unspecified angina pectoris; K21.9 Gastro-esophageal reflux disease without esophagitis; E03.9 Hypothyroidism, unspecified
CPT/HCPCS: 96372; 99212; 99214; G0463

== ENCOUNTER 2023-09-26 13:30 | Outpatient (CLI) | payer BC, SELFPAY ==
[2023-09-26 13:48] LABS: Basophils % 0.4 % (0.1-2.0); Eosinophils # 0.4 K/mm3 (0.0-0.4); Eosinophils % 4.1 % (0.1-12.0); Hematocrit 37.3 % (37.0-47.0); Hemoglobin 12.6 g/dL (12.2-16.2); Lymphocytes # 2.1 K/mm3 (0.7-4.5); Lymphocytes % 22.1 % (10-50); Mean Corpuscular HGB Conc 33.8 g/dL (31.8-35.4); Mean Corpuscular Hemoglobin 28.6 pg (27.0-31.2); Mean Corpuscular Volume 84.5 fl (81-99); Monocytes # 0.6 K/mm3 (0.1-1.0); Monocytes % 6.4 % (1.7-9.3); Neutrophils # 6.3 K/mm3 (1.8-7.8); Platelet Count 173 K/mm3 (142-424); Red Blood Count 4.42 M/mm3 (4.20-5.40); Red Cell Distribution Width 13.7 % (11.5-17.5); White Blood Count 9.4 K/mm3 (4.8-10.8)
[2023-09-26 14:34] LABS: Alanine Aminotransferase 27 U/L (12-78); Albumin Level 4.2 g/dl (3.5-5.0); Albumin/Globulin Ratio 1.8 (1.1-1.8); Alkaline Phosphatase 72 U/L (38-126); Anion Gap 12.1 mEq/L (5-15); Aspartate Amino Transferase 27 U/L (14-36); Bilirubin,Total 0.6 mg/dl (0.2-1.3); Blood Urea Nitrogen 28 mg/dl (7-17); Calcium 9.3 mg/dl (8.4-10.2); Carbon Dioxide 25 mmol/L (22.0-30.0); Chloride 102 mmol/L (98-107); Chol/HDL Ratio 2.9 (1-3.5); Cholesterol 223 mg/dl (140-200); Estimated Glomerular Filt Rate 35 ml/min (>60); GFR (African American) 42 ML/MIN (>60); Globulin 2.3 g/dL (1.3-3.2); Glucose 81 mg/dl (74-100); HDL Cholesterol 78 mg/dl (40-60); Potassium 5.1 mmoL/L (3.5-5.1); Sodium 134 mmol/L (136-145); Total Protein,Serum 6.5 g/dl (6.3-8.2); Triglycerides 178 mg/dl (30-150); VLDL Cholesterol 36 mg/dL (0-40)
[2023-09-26 14:44] LABS: Direct LDL Cholesterol 79.61 mg/dL (100-129)
[2023-09-26 14:50] LABS: 25-OH Vitamin D, Total 29.5 ng/mL (30-100)
[2023-09-26 15:04] LABS: Thyroid Stimulating Hormone 1.69 uIU/mL (0.465-4.68)
[2023-09-26 15:23] LABS: Vitamin B12 527 pg/mL (239-931)
[2023-09-26 15:47] LABS: Iron 106 ug/dL (37-170)
[2023-09-26 15:57] LABS: Total Iron Binding Capacity 284 ug/dL (265-497)
[2023-09-26 16:24] LABS: Ferritin 42.9 ng/ml (11.1-264)
== END 2023-09-26 23:59 ==
LOC: LAB.DROPOF 13:31
PROVIDERS: PCP Physician Assistant; Visit Provider Physician Assistant
DX: R42 Dizziness and giddiness (principal); E55.9 Vitamin D deficiency, unspecified; Z79.899 Other long term (current) drug therapy
CPT/HCPCS: 80053; 80061; 82306; 82607; 82728; 83540; 83550; 84443; 85025

== ENCOUNTER 2023-09-27 12:39 | Emergency (ER) | payer BC, SELFPAY ==
[2023-09-27] VITALS (10 sets, daily range): BP systolic 92–106; BP diastolic 54–67; PULSE 65–100; RESP 12–18; TEMP 36.5; O2SAT 98–100; BMI 24.7
--- NOTE | 2023-09-27 12:38 | ECG_ITS ---
APPROVED REPORT Exam: Resting ECG HR:82 bpm ECG Measurements Heart Rate 82 AXES WA 148 P 55 QRSd 85 QRS 61 QT 337 T 52 QTc 375 Conclusion SINUS RHYTHM NORMAL ECG UNCONFIRMED REPORT Electronically signed by : Kevan Bonner MD 09/27/2023 21:53:40
--- NOTE | 2023-09-27 12:50 | XR_ITS ---
FINAL REPORT CLINICAL HISTORY: chest pain COMPARISON: 12/09/2022 FINDINGS: SINGLE-VIEW CHEST The heart size is normal. The mediastinum is normal. The lungs are clear. There is no pneumothorax. IMPRESSION: No acute cardiopulmonary process. Reviewed, Interpreted and Dictated by Willam Solorzano III, MD Transcribed by Lyndsey Carroll Authenticated and [facility]
--- NOTE | 2023-09-27 12:57 | ED_ITS ---
Discharge Plan Disposition Patient Disposition: Home, Self-Care Condition: Good Prescriptions Prescriptions: No Action triamcinolone acetonide 0.1 % ointment 1 applic topical BID Qty: 15 0RF fluticasone propion-salmeterol [Wixela Inhub] 250-50 mcg/dose blister with device 1 inh inhalation BID Qty: 60 5RF levothyroxine 50 mcg tablet 50 mcg PO DAILY Qty: 90 0RF lisinopril 10 mg tablet 10 mg PO BID Qty: 90 0RF cyclobenzaprine 10 mg Tablet 10 mg PO BID PRN (Reason: Muscle Spasm) Qty: 20 0RF omeprazole 40 mg capsule,delayed release(DR/EC) 40 mg PO DAILY aspirin [Adult Low Dose Aspirin] 81 mg tablet,delayed release (DR/EC) 81 mg PO DAILY rosuvastatin 10 mg tablet See Rx Instructions .ROUTE .COMPLEX Rx Instructions: Take 1 tablet by mouth once daily fluticasone propion-salmeterol [Advair Diskus] 250-50 mcg/dose blister with device 1 ea INHALATION BID Patient Comments: INHALE 1 PUFF BY MOUTH TWICE DAILY cetirizine 10 mg tablet 10 mg PO DAILY Patient Comments: TAKE 1 TABLET BY MOUTH ONCE DAILY Referrals Follow up/Referrals: Provider,Referral, MD [Referring] - See instructions Activity Restrictions/Add. Instructions Additional Instructions/Restrictions: As discussed, please follow-up with your primary care physician within the next 48 hours for repeat lab workup to ensure that your creatinine is trending down appropriately in the setting of your CASSI. Please drink plenty of fluids. Please return to the ED for any new or worsening symptoms. Clinical Impressions Clinical Impression: Right-sided chest pain, Diarrhea Discharge ED Provider: Ishmael Morelos Adult HPI General Chief complaint: Chest Pain Stated complaint: cp Time Seen by Provider: 09/27/23 12:49 Mode of Arrival: Ambulatory Source of Information: Patient Limitations: No Limitations Description of Symptoms (Recalled from ER Triage Doc. by RN): pt c/o R sided chest pain that radiates into her R shoulder, nausea, dizziness, being lightheaded, hypotension, and SOA x2h History of Present Illness HPI narrative: 68-year-old female with past medical history significant for hypertension, CAD on 81 mg of aspirin daily, asthma, osteoporosis, RA, RLS, hypothyroidism, GERD, presents today for evaluation concerning right-sided chest pain that began around 9 AM this morning while she was walking at work. She states that she works at [employer]. Her chest pain has been intermittent, sharp on the right side and radiates to her right shoulder. Has had associated nausea without emesis. Also notes dizziness characterized as lightheadedness and has also had decreased p.o. intake. Denies any fevers, chills, shortness of breath, dysuria, hematuria. She does note that she has had diarrhea over the past day noting more than 3 episodes this morning. No further complaints. Related Data Home Medications Medication Instructions Recorded Confirmed omeprazole 40 mg capsule,delayed 40 mg PO DAILY Reflux/Acid reflux 10/25/22 09/26/23 release aspirin 81 mg tablet,delayed 81 mg PO DAILY Blood Thinner 04/07/23 09/26/23 release (Adult Low Dose Aspirin) rosuvastatin 10 mg tablet See Rx Instructions .Route 04/07/23 09/26/23 .COMPLEX Cholesterol cetirizine 10 mg tablet 10 mg PO DAILY allergies 06/08/23 09/26/23 fluticasone 250 mcg-salmeterol 50 1 ea inhalation BID asthma 06/08/23 09/26/23 mcg/dose blistr powdr for inhalation (Advair Diskus) Previous Rx's Medication Instructions Recorded triamcinolone acetonide 0.1 % 1 applic topical BID #15 grams 07/29/23 topical ointment levothyroxine 50 mcg tablet 50 mcg PO DAILY thyroid #90 tabs 08/22/23 lisinopril 10 mg tablet 10 mg PO BID HTN #90 tabs 08/31/23 cyclobenzaprine 10 mg tablet 10 mg PO BID PRN Muscle Spasm #20 09/19/23 tabs fluticasone 250 mcg-salmeterol 50 1 inh inhalation BID #60 ea 09/26/23 mcg/dose blistr powdr for inhalation (Wixela Inhub) Allergies Allergy/AdvReac Type Severity Reaction Status Date / Time Iodinated Contrast Media Allergy Verified 09/19/23 11:18 iodine Allergy Verified 09/19/23 11:18 buspirone [From BuSpar] AdvReac Intermediate Verified 09/19/23 11:18 codeine AdvReac Intermediate Verified 09/19/23 11:18 morphine AdvReac Intermediate Verified 09/19/23 11:18 [facility] Disclaimer: The information contained in this section may have been updated after the patient was seen, as this information can be updated by other users. Medical History (Updated 09/27/23 @ 17:33 by Ishmael Morelos DO) Abnormal result of cardiovascular function study CASSI (acute kidney injury) Arthritis Asthma Coronary artery disease Elevated d-dimer GERD (gastroesophageal reflux disease) History of left heart catheterization Hypertension Hypothyroidism Numbness and tingling in right hand Osteoporosis RA (rheumatoid arthritis) Right flank mass Right wrist pain Seasonal allergies Serum potassium elevated Typical angina Surgical History H/O knee surgery H/O neck surgery H/O wrist surgery History of back surgery History of cholecystectomy History of hysterectomy Hx of appendectomy Family History Other Family history of cardiac disorder Social History Smoking Status: Never smoker alcohol intake: never substance use type: denies use current occupational status: retired Travel in the last 8 weeks: None caffeine: Yes ROS Obtained: Yes All systems reviewed & no additional complaints except as documented Physical Exam General General appearance: alert and in no apparent distress Head Head exam: atraumatic and normocephalic Eye Eye exam: Present normal appearance, PERRL and EOMI ENT ENT exam: Present normal oropharynx and mucous membranes moist Neck Neck exam: Present full ROM; Absent meningismus Respiratory Respiratory exam: Absent respiratory distress, wheezes, stridor or accessory muscle use Cardiovascular Cardiovascular exam: Present normal rhythm Abdominal Exam Abdominal exam: Present soft; Absent distention, tenderness, guarding, rebound or rigidity Neurological Exam Neurological exam: Present alert, oriented X3 and CN II-XII intact; Absent motor sensory deficit Psychiatric Psychiatric exam: Present normal affect and normal mood Skin Skin exam: Present warm and dry Medical Decision Making Medical Records Medical records reviewed: Yes I reviewed the patient's medical records. Zenon Inquiry Pt receiving controlled substance: No Zenon was queried for this patient: No Vital Signs: 09/27/23 12:43 09/27/23 13:00 09/27/23 13:30 Temperature 97.7 F Temperature Source Oral Pulse Rate 100 H 73 Pulse Rate [Left] 88 Respiratory Rate 12 18 14 Blood Pressure 96/54 L 92/54 L Blood Pressure [Right Arm] 98/59 L Blood Pressure Mean [Right Arm] 72 Blood Pressure Source [Right Arm] Automatic Cuff Blood Pressure Position [Right Arm] Sitting 02 Sat by Pulse Oximetry 98 98 100 Oxygen Delivery Method Room Air Room Air Room Air 09/27/23 14:00 09/27/23 14:30 09/27/23 15:00 Temperature Temperature Source Pulse Rate 65 72 68 Pulse Rate [Left] Respiratory Rate 13 13 12 Blood Pressure 104/62 L 104/67 L 94/66 L Blood Pressure [Right Arm] Blood Pressure Mean [Right Arm] Blood Pressure Source [Right Arm] Blood Pressure Position [Right Arm] 02 Sat by Pulse Oximetry 100 100 100 Oxygen Delivery Method Room Air Room Air Room Air 09/27/23 15:30 09/27/23 16:00 09/27/23 16:30 Temperature Temperature Source Pulse Rate 69 69 66 Pulse Rate [Left] Respiratory Rate 12 16 16 Blood Pressure 106/61 L 102/64 L 100/55 L Blood Pressure [Right Arm] Blood Pressure Mean [Right Arm] Blood Pressure Source [Right Arm] Blood Pressure Position [Right Arm] 02 Sat by Pulse Oximetry 100 100 100 Oxygen Delivery Method Room Air Room Air Room Air Lab Data Lab Results 09/27/23 12:40: WBC 9.6, RBC 4.27, Hgb 12.0 L, Hct 36.0 L, MCV 84.4, MCH 28.2, MCHC 33.5, RDW 13.8, Plt Count 210, MPV 9.0, Neut % (Auto) 76.5, Lymph % (Auto) 14.6, [place] % (Auto) 5.7, Eos % (Auto) 3.0, Baso % (Auto) 0.2, Neut # (Auto) 7.4, Lymph # (Auto) 1.4, [place] # (Auto) 0.6, Eos # (Auto) 0.3, Baso # (Auto) 0.0, Sodium 133 L, Potassium 4.7, Chloride 102, Carbon Dioxide 26, Anion Gap 9.7, BUN 32 H, Creatinine 2.40 H D, Estimated Creat Clear 22, Estimated GFR 20 L, Est GFR ( Amer) 24 L D, Glucose 111 H, Calcium 9.0, Total Bilirubin 0.4, AST 28, ALT 27, Alkaline Phosphatase 80, Troponin I < 0.01, Total Protein 6.9, Albumin 4.1, Globulin 2.8, Albumin/Globulin Ratio 1.5 09/27/23 15:42: Sodium 131 L, Potassium 5.4 H, Chloride 104, Carbon Dioxide 25, Anion Gap 7.4, BUN 30 H, Creatinine 2.00 H, Estimated Creat Clear 27, Estimated GFR 25 L, Est GFR ( Amer) 30 L D, Glucose 95, Calcium 8.5, Troponin I < 0.01, SARS-CoV-2 (PCR) Not detected, Influenza A Untype (PCR) Not detected, Influenza Type B (PCR) Not detected 09/27/23 12:40 09/27/23 15:42 Orders (Tests/Meds): ED MEDICATIONS Generic Name Dose Route Start Last Admin Trade Name Freq PRN Reason Stop Dose Admin Sodium Chloride 10 ml 09/27/23 13:44 Sodium Chloride 0.9% 10ml Flush Syringe IV 10/27/23 13:43 NEEDED PRN Maintain IV Site Discontinued Medications Generic Name Dose Route Start Last Admin Trade Name Freq PRN Reason Stop Dose Admin Hydromorphone HCl 0.5 mg 09/27/23 12:56 09/27/23 13:03 Hydromorphone 2mg/Ml Syringe IV 09/27/23 12:57 0.5 mg ONCE ONE Administration Lactated Ringer's 500 mls @ 999 mls/hr 09/27/23 12:56 09/27/23 13:03 Lactated Ringer's 1000 Ml Bag IV 09/27/23 13:26 999 mls/hr .Q31M ONE Administration ORDERS Category Date Time Status Chest XR -- portable [XR chest portable] Stat Exams 09/27/23 12:50 Taken BMP [Basic Metabolic Panel] Stat Lab 09/27/23 15:42 Completed Complete Blood Count Auto Diff Stat Lab 09/27/23 12:40 Completed Comprehensive Metabolic Panel Stat Lab 09/27/23 12:40 Completed Rapid PCR Covid and Flu A/B Stat Lab 09/27/23 15:42 Completed Troponin I Q3H Lab 09/27/23 15:42 Completed Troponin I Q3H Lab 09/27/23 19:00 Ordered Troponin I Stat Lab 09/27/23 12:40 Completed ECG initial [place] Routine Y 09/27/23 12:38 Completed ECG Data Tracing #1: I reviewed this ECG and interpreted as documented below: EKG personally interpreted by me. Normal sinus rhythm with a rate of [address] elevations are noted to suggest ischemia. QTc of 375. HEART Score History (anamnesis): Slightly suspicious ECG: Normal Age: >65 years Risk factors: Atherosclerosis history Troponin: </= normal limit HEART Score: 4 Medical Decision Narrative: 68-year-old female with past medical history significant for hypertension, CAD on 81 mg of aspirin daily, asthma, osteoporosis, RA, RLS, hypothyroidism, GERD, presents today for evaluation concerning right-sided chest pain that began around 9 AM this morning while she was walking at work. She states that she works at [employer]. Her chest pain has been intermittent, sharp on the right side and radiates to her right shoulder. Has had associated nausea without emesis. Also notes dizziness characterized as lightheadedness and has also had decreased p.o. intake. On assessment, she was hemodynamically stable and in no acute distress. Afebrile. Chest was clear to auscultation bilaterally. Abdomen soft nondistended and nontender to palpation. Other physical exam findings were unremarkable. Differential diagnoses include not limited to STEMI, NSTEMI, pleural effusion, pneumonia, costochondritis, viral syndrome, gastroenteritis, diverticulitis considered however patient has not had any fevers or abdominal pain, among others. Lab workup today with WBC of 9.6. Stable anemia with hemoglobin of 12. Hematocrit of 36. Potassium of 5.4. No significant EKG changes were noted. Sodium of 133. Creatinine 2.4 consistent with CASSI in comparison to her baseline creatinine which appears to be from 1.2-1.5. Initial troponin less than 0.01. Second troponin less than 0.01. Chest x-ray was independently interpreted by me and was without any acute cardiopulmonary disease processes. EKG did not show any findings concerning for ischemia. Negative swabs for COVID and influenza. I did give patient a 1 L fluid bolus of LR and repeat her BMP and creatinine trended down to 2.0. On reassessment the patient evan medically stable and in no acute distress. She states that her pain is resolved at this time. I discussed ED workup and results and diagnosis of CASSI. Had interactive discussion with patient concerning my recommendation to admit for further management concerning her CASSI however patient has noted that she desires to go home and has close follow-up with her PCP and can obtain lab workup within the next 48 hours. She also stated that she will drink plenty of fluids tonight to further assist with decreasing her creatinine. Discussed risks versus benefits. She verbalized understanding and agreement. I provided her with strict return ED precautions and instructions concerning PCP follow-up within the next 48 hours. She again verbalized understanding and agreed and was ultimately discharged home hemodynamically stable in no acute distress. Critical Care Critical Care Time Critical Care Time: No
[2023-09-27] MEDS: HYDROMORPHONE 2MG/ML SYRINGE 0.5 MG IV (13:03)
[2023-09-27] MEDS: LACTATED RINGERS 1000ML 500 ML 999 ML IV (13:03)
[2023-09-27 13:04] LABS: Chloride 102 mmol/L (98-107); Potassium 4.7 mmoL/L (3.5-5.1); Sodium 133 mmol/L (136-145)
[2023-09-27 13:07] LABS: Alanine Aminotransferase 27 U/L (12-78); Albumin Level 4.1 g/dl (3.5-5.0); Albumin/Globulin Ratio 1.5 (1.1-1.8); Alkaline Phosphatase 80 U/L (38-126); Anion Gap 9.7 mEq/L (5-15); Aspartate Amino Transferase 28 U/L (14-36); Bilirubin,Total 0.4 mg/dl (0.2-1.3); Blood Urea Nitrogen 32 mg/dl (7-17); Carbon Dioxide 26 mmol/L (22.0-30.0); Creatinine Clearance Estimated 22 mL/min (50-200); Estimated Glomerular Filt Rate 20 ml/min (>60); GFR (African American) 24 ML/MIN (>60); Globulin 2.8 g/dL (1.3-3.2); Total Protein,Serum 6.9 g/dl (6.3-8.2)
[2023-09-27 13:08] LABS: Basophils % 0.2 % (0.1-2.0); Eosinophils # 0.3 K/mm3 (0.0-0.4); Glucose 111 mg/dl (74-100); Lymphocytes # 1.4 K/mm3 (0.7-4.5); Lymphocytes % 14.6 % (10-50); Mean Corpuscular HGB Conc 33.5 g/dL (31.8-35.4); Mean Corpuscular Hemoglobin 28.2 pg (27.0-31.2); Mean Corpuscular Volume 84.4 fl (81-99); Monocytes # 0.6 K/mm3 (0.1-1.0); Monocytes % 5.7 % (1.7-9.3); Neutrophils # 7.4 K/mm3 (1.8-7.8); Neutrophils % 76.5 % (37.0-80.0); Platelet Count 210 K/mm3 (142-424); Red Blood Count 4.27 M/mm3 (4.20-5.40); Red Cell Distribution Width 13.8 % (11.5-17.5); White Blood Count 9.6 K/mm3 (4.8-10.8)
[2023-09-27 13:22] LABS: Troponin I < 0.01 ng/ml (0.00-0.034)
--- NOTE | 2023-09-27 13:55 | PC.NURSE ---
turned pt light off nothing else needed at this time,granddaughter at bs
--- NOTE | 2023-09-27 14:08 | PC.NURSE ---
called radiology to fax report down bc it is not coming across for ER MD to see
[2023-09-27 15:48] LABS: Coronavirus 19, PCR Not Detected (NotDetected); Influenza A, PCR Not Detected (NotDetected); Influenza B, PCR Not Detected (NotDetected)
[2023-09-27 16:09] LABS: Chloride 104 mmol/L (98-107); Potassium 5.4 mmoL/L (3.5-5.1); Sodium 131 mmol/L (136-145)
[2023-09-27 16:12] LABS: Anion Gap 7.4 mEq/L (5-15); Blood Urea Nitrogen 30 mg/dl (7-17); Carbon Dioxide 25 mmol/L (22.0-30.0); Creatinine Clearance Estimated 27 mL/min (50-200); Estimated Glomerular Filt Rate 25 ml/min (>60); GFR (African American) 30 ML/MIN (>60)
[2023-09-27 16:13] LABS: Calcium 8.5 mg/dl (8.4-10.2); Glucose 95 mg/dl (74-100)
[2023-09-27 16:25] LABS: Troponin I < 0.01 ng/ml (0.00-0.034)
== END 2023-09-27 18:04 | disposition home or self-care (01) ==
PROVIDERS: Emergency Provider Emergency Medicine; PCP Physician Assistant
DX: R07.89 Other chest pain (principal); E87.1 Hypo-osmolality and hyponatremia; E87.5 Hyperkalemia; R19.7 Diarrhea, unspecified; I11.9 Hypertensive heart disease without heart failure; I25.119 Atherosclerotic heart disease of native coronary artery with unspecified angina pectoris; K21.9 Gastro-esophageal reflux disease without esophagitis; E03.9 Hypothyroidism, unspecified
CPT/HCPCS: 71045; 80048; 80053; 84484; 85025; 87636; 93005; 96374; 99285

== ENCOUNTER 2023-09-29 08:13 | Outpatient (CLI) | payer BC, SELFPAY ==
[2023-09-29 08:26] LABS: Basophils % 0.4 % (0.1-2.0); Eosinophils # 0.3 K/mm3 (0.0-0.4); Eosinophils % 5.3 % (0.1-12.0); Hemoglobin 11.5 g/dL (12.2-16.2); Lymphocytes # 1.2 K/mm3 (0.7-4.5); Mean Corpuscular Hemoglobin 28.3 pg (27.0-31.2); Mean Corpuscular Volume 83.2 fl (81-99); Mean Platelet Volume 8.9 fl (7.4-10.4); Monocytes # 0.4 K/mm3 (0.1-1.0); Monocytes % 6.8 % (1.7-9.3); Neutrophils # 3.5 K/mm3 (1.8-7.8); Neutrophils % 64.5 % (37.0-80.0); Platelet Count 192 K/mm3 (142-424); Red Blood Count 4.08 M/mm3 (4.20-5.40); Red Cell Distribution Width 13.6 % (11.5-17.5); White Blood Count 5.4 K/mm3 (4.8-10.8)
[2023-09-29 09:07] LABS: Chloride 106 mmol/L (98-107); Potassium 4.7 mmoL/L (3.5-5.1); Sodium 139 mmol/L (136-145)
[2023-09-29 09:10] LABS: Blood Urea Nitrogen 22 mg/dl (7-17); Estimated Glomerular Filt Rate 35 ml/min (>60); GFR (African American) 42 ML/MIN (>60)
[2023-09-29 09:11] LABS: Anion Gap 5.7 mEq/L (5-15); Calcium 8.7 mg/dl (8.4-10.2); Carbon Dioxide 32 mmol/L (22.0-30.0); Glucose 91 mg/dl (74-100)
== END 2023-09-29 23:59 ==
PROVIDERS: PCP Physician Assistant; Visit Provider Physician Assistant
DX: I25.10 Atherosclerotic heart disease of native coronary artery without angina pectoris (principal); I10 Essential (primary) hypertension; E03.9 Hypothyroidism, unspecified; N17.9 Acute kidney failure, unspecified; Z79.899 Other long term (current) drug therapy
CPT/HCPCS: 36415; 80048; 85025

== ENCOUNTER 2023-10-04 08:43 | Outpatient (CLI) | payer BC, SELFPAY ==
[2023-10-04 09:54] LABS: Anion Gap 7.4 mEq/L (5-15); Blood Urea Nitrogen 11 mg/dl (7-17); Carbon Dioxide 29 mmol/L (22.0-30.0); Chloride 107 mmol/L (98-107); Estimated Glomerular Filt Rate 41 ml/min (>60); GFR (African American) 50 ML/MIN (>60); Glucose 95 mg/dl (74-100); Potassium 4.4 mmoL/L (3.5-5.1); Sodium 139 mmol/L (136-145)
== END 2023-10-04 23:59 ==
LOC: LAB 08:44
PROVIDERS: PCP Physician Assistant; Visit Provider Physician Assistant
DX: I95.9 Hypotension, unspecified (principal); N17.9 Acute kidney failure, unspecified; R79.89 Other specified abnormal findings of blood chemistry
CPT/HCPCS: 36415; 80048

== ENCOUNTER 2023-11-03 12:06 | Outpatient (CLI) | payer BC, SELFPAY ==
[2023-11-03 12:51] LABS: Anion Gap 9.1 mEq/L (5-15); Calcium 9.1 mg/dl (8.4-10.2); Carbon Dioxide 25 mmol/L (22.0-30.0); Chloride 107 mmol/L (98-107); Glucose 87 mg/dl (74-100); Potassium 4.1 mmoL/L (3.5-5.1); Sodium 137 mmol/L (136-145)
[2023-11-03 12:57] LABS: Blood Urea Nitrogen 17 mg/dl (7-17); Estimated Glomerular Filt Rate 45 ml/min (>60); GFR (African American) 54 ML/MIN (>60)
== END 2023-11-03 23:59 ==
LOC: LAB 12:06
PROVIDERS: PCP Physician Assistant; Visit Provider Physician Assistant
DX: N17.9 Acute kidney failure, unspecified (principal)
CPT/HCPCS: 36415; 80048

== ENCOUNTER 2024-04-21 12:49 | Emergency (ER) | payer BC, SELFPAY ==
[2024-04-21] VITALS (7 sets, daily range): BP systolic 135–198; BP diastolic 84–115; PULSE 64–91; RESP 16–20; TEMP 36.7–36.9; O2SAT 96–98; BMI 24.7
--- NOTE | 2024-04-21 12:55 | ECG_ITS ---
APPROVED REPORT Exam: Resting ECG HR:92 bpm ECG Measurements Heart Rate 92 AXES FL 161 P 63 QRSd 85 QRS 62 QT 346 T 42 QTc 396 Conclusion SINUS RHYTHM MINIMAL ST DEPRESSION [0.025+ mV ST DEPRESSION] BORDERLINE ECG UNCONFIRMED REPORT Electronically signed by : Jer Yoo, 04/23/2024 14:44:51
--- NOTE | 2024-04-21 13:16 | XR_ITS ---
PROCEDURE INFORMATION: Exam: XR Chest Exam date and time: 04/21/2024 1:27 PM Age: 68 years old Clinical indication: Pain; Right-sided; Additional info: Cp right sided TECHNIQUE: Imaging protocol: Radiologic exam of the chest. Views: 1 view. COMPARISON: CR XR CHEST PORTABLE 09/27/2023 12:50 PM FINDINGS: Lungs: Unremarkable. No consolidation. Pleural spaces: Unremarkable. No pleural effusion. No pneumothorax. Heart/Mediastinum: Unremarkable. No cardiomegaly. Vasculature: Ectatic aorta. Bones/joints: Osteopenia. Degenerative change of the spine and shoulders. Thoracic spine dextrocurvature. Intraperitoneal space: Right upper quadrant clips. IMPRESSION: No acute findings.
--- NOTE | 2024-04-21 13:25 | [facility].EDCP ---
Discharge Plan Disposition Patient Disposition: Home, Self-Care Prescriptions Prescriptions: New nitroglycerin 0.4 mg tablet, sublingual 0.4 mg sublingual Q5M Qty: 30 0RF Rx Instructions: do not exceed 3 doses per episode No Action fluticasone propion-salmeterol [Wixela Inhub] 250-50 mcg/dose blister with device 1 inh inhalation BID Qty: 60 5RF epinephrine 0.3 mg/0.3 mL syringe 0.3 mg SQ Q5-15M PRN Rx Instructions: do not exceed 2 doses per episode prednisone 20 mg tablet 20 mg PO BID Qty: 10 0RF triamcinolone acetonide 0.025 % lotion 1 applic topical BID Qty: 60 1RF amitriptyline 25 mg tablet 25 mg PO HS PRN (Reason: sleep) Qty: 30 2RF levothyroxine 50 mcg tablet See Rx Instructions .ROUTE .COMPLEX Qty: 90 0RF Dose Instruction: TAKE 1 TABLET BY MOUTH ONCE DAILY FOR THYROID Rx Instructions: TAKE 1 TABLET BY MOUTH ONCE DAILY FOR THYROID omeprazole 40 mg capsule,delayed release(DR/EC) See Rx Instructions .ROUTE .COMPLEX Qty: 90 0RF Dose Instruction: TAKE 1 CAPSULE BY MOUTH ONCE DAILY FOR REFLUX/ACID REFLUX Rx Instructions: TAKE 1 CAPSULE BY MOUTH ONCE DAILY FOR REFLUX/ACID REFLUX aspirin [Adult Low Dose Aspirin] 81 mg tablet,delayed release (DR/EC) 81 mg PO DAILY rosuvastatin 10 mg tablet See Rx Instructions .ROUTE .COMPLEX Rx Instructions: Take 1 tablet by mouth once daily cetirizine 10 mg tablet 10 mg PO DAILY Patient Comments: TAKE 1 TABLET BY MOUTH ONCE DAILY Referrals Follow up/Referrals: Berna Khan PA [Primary Care Provider] - See instructions Activity Restrictions/Add. Instructions Additional Instructions/Restrictions: Call your family doctor to establish care for this visit to the emergency department and schedule follow-up within 48 hours to ensure improvement. If you have any worsening of your condition or any other concerning signs or symptoms, return to the emergency department or your primary care doctor for further evaluation. If you begin having chest pain, nitroglycerin as needed. If you need to take nitroglycerin for chest pain, return to the emergency department promptly after cheering up for baby aspirin. Clinical Impressions Clinical Impression: Stable angina Print Language Print Language: [place] Discharge ED Provider: Oscar,Ross A HPI General Chief Complaint: Shortness of Breath/Dyspnea Stated Complaint: pain in upper right chest , light-headed Time Seen by Provider: 04/21/24 12:55 Mode of Arrival: Ambulatory Source of Information: Patient Limitations: No Limitations Description of Symptoms (Recalled from ER Triage Doc. by RN): Patient reports right sided, sharp chest pain that began approx 730 this morning. Also reports and shortness of breath. History of Present Illness HPI narrative: Please note that above description of symptoms, in this electronic medical record under categorization of recalled from ER triage doctor by RN are reflective of an initial nursing assessment, however, is not reflective of my full history and physical exam that was personally taken and clarified. Consequentially, this preceding description of symptoms, which may include the patient's categorized chief complaint in the EMR, do not reflect my personal clinical impression, and the ultimate description of history of present illness and patient stated complaints should be deferred to this section of the note. Unless stated otherwise or congruent with this section of the note, additional signs, symptoms, or incongruence should be interpreted as inaccurate with my clinical impression. Related Data Home Medications ?Medication ?Instructions ?Recorded ?Confirmed aspirin 81 mg tablet,delayed 81 mg PO DAILY Blood Thinner 04/07/23 04/05/24 release (Adult Low Dose Aspirin) rosuvastatin 10 mg tablet See Rx Instructions .Route 04/07/23 04/05/24 .COMPLEX Cholesterol cetirizine 10 mg tablet 10 mg PO DAILY allergies 06/08/23 04/05/24 epinephrine 0.3 mg/0.3 mL 0.3 mg SQ Q5-15M PRN 04/05/24 04/05/24 injection syringe Previous Rx's ?Medication ?Instructions ?Recorded fluticasone 250 mcg-salmeterol 50 1 inh inhalation BID #60 ea 09/26/23 mcg/dose blistr powdr for inhalation (Wixela Inhub) levothyroxine 50 mcg tablet See Rx Instructions .Route 03/26/24 .COMPLEX #90 tabs amitriptyline 25 mg tablet 25 mg PO HS PRN sleep #30 tabs 04/05/24 prednisone 20 mg tablet 20 mg PO BID #10 tabs 04/05/24 triamcinolone acetonide 0.025 % 1 applic topical BID #60 mL 04/05/24 lotion omeprazole 40 mg capsule,delayed See Rx Instructions .Route 04/20/24 release .COMPLEX #90 caps nitroglycerin 0.4 mg sublingual 0.4 mg sublingual Q5M #30 tabs 04/21/24 tablet Allergies Allergy/AdvReac Type Severity Reaction Status Date / Time Iodinated Contrast Media Allergy Verified 04/05/24 13:14 iodine Allergy Verified 04/05/24 13:14 buspirone [From BuSpar] AdvReac Intermediate Verified 04/05/24 13:14 codeine AdvReac Intermediate Verified 04/05/24 13:14 morphine AdvReac Intermediate Verified 04/05/24 13:14 PFSH [facility] Disclaimer: The information contained in this section may have been updated after the patient was seen, as this information can be updated by other users. Medical History (Updated 04/21/24 @ 14:19 by Panda Moore MD) Numbness and tingling in right hand Right wrist pain Coronary artery disease Typical angina Abnormal result of cardiovascular function study Elevated d-dimer Right flank mass CASSI (acute kidney injury) Serum potassium elevated Osteoporosis RA (rheumatoid arthritis) Asthma History of left heart catheterization GERD (gastroesophageal reflux disease) Arthritis Hypothyroidism Seasonal allergies Hypertension Surgical History Hx of appendectomy History of cholecystectomy History of hysterectomy H/O knee surgery H/O wrist surgery H/O neck surgery History of back surgery Family History Other Family history of cardiac disorder Social History Smoking Status: Never smoker alcohol intake: never substance use type: denies use current occupational status: retired Travel in the last 8 weeks: None caffeine: Yes ROS Obtained: Yes All systems reviewed & no additional complaints except as documented Physical Exam General General appearance: alert Neck Neck exam: Present trachea midline Chest Chest inspection: Present normal inspection and symmetric chest wall rise Respiratory Respiratory exam: Present normal lung sounds bilaterally; Absent respiratory distress, wheezes, stridor, accessory muscle use or prolonged expiratory phase Cardiovascular Cardiovascular exam: Present regular rate, normal rhythm and other (Pulses equal and symmetric in upper and lower extremities) Extremities Exam Extremities exam: Absent edema Neurological Exam Neurological exam: Present alert, oriented X3 and CN II-XII intact Skin Skin exam: Present warm and dry; Absent cyanosis, diaphoresis or pallor HEART Score HEART Score HEART Score assessment performed?: Yes History (anamnesis): Slightly suspicious ECG: Non-specific disturbance Age: >65 years Risk factors: 3 or more risk factors Troponin: </= normal limit HEART Score: 5 Critical Care Critical Care Time Critical Care Time: No Medical Decision Making Medical Records Medical records reviewed: Yes I reviewed the patient's medical records. Zenon Inquiry Pt receiving controlled substance: No Zenon was queried for this patient: No Vital Signs Vital Signs: 04/21/24 12:50 Temperature 98.4 F Temperature Source Oral Pulse Rate [Radial] 91 H Respiratory Rate 20 Blood Pressure [Right Arm] 195/113 H Blood Pressure Mean [Right Arm] 140 Blood Pressure Source [Right Arm] Automatic Cuff Blood Pressure Position [Right Arm] Sitting 02 Sat by Pulse Oximetry 98 Oxygen Delivery Method Room Air Lab Data Labs: Lab Results 04/21/24 13:00: WBC 6.1, RBC 4.66, Hgb 13.2, Hct 41.9, MCV 89.9, MCH 28.3, MCHC 31.5 L, RDW 14.2, Plt Count 194, MPV 9.4, Neut % (Auto) 56.7, Lymph % (Auto) 32.8, [place] % (Auto) 6.3, Eos % (Auto) 2.7, Baso % (Auto) 1.5, Neut # (Auto) 3.5, Lymph # (Auto) 2.0, [place] # (Auto) 0.4, Eos # (Auto) 0.2, Baso # (Auto) 0.1, Sodium 139, Potassium 5.1, Chloride 105, Carbon Dioxide 31 H, Anion Gap 8.1, BUN 20 H, Creatinine 1.20 H, Estimated Creat Clear 45, Estimated GFR 45 L, Est GFR ( Amer) 54 L, Glucose 97, Calcium 9.2, Total Bilirubin 0.5, AST 39 H, ALT 23, Alkaline Phosphatase 80, Troponin I < 0.01, NT-Pro-B Natriuret Pep 277 H, Total Protein 7.2, Albumin 4.4, Globulin 2.8, Albumin/Globulin Ratio 1.6, Lipase 158 04/21/24 13:00 04/21/24 13:00 Response Orders (Tests/Meds): ED MEDICATIONS Generic Name Dose Route Start Last Admin Trade Name Freq PRN Reason Stop Dose Admin Nitroglycerin 0.4 mg 04/21/24 13:16 04/21/24 13:26 Nitroglycerin 0.4mg Sl Tablet SL 05/21/24 13:15 0.4 mg Q5MINP PRN Administration Chest Pain Sodium Chloride 10 ml 04/21/24 13:00 Sodium Chloride 0.9% 10ml Flush Syringe IV 05/21/24 12:59 NEEDED PRN Maintain IV Site Discontinued Medications Generic Name Dose Route Start Last Admin Trade Name Dacia PRN Reason Stop Dose Admin Aspirin 324 mg 04/21/24 13:16 04/21/24 13:26 Aspirin 81mg Chewable Tablet PO 04/21/24 13:17 324 mg ONCE ONE Administration ORDERS Category Date Time Status CXR --portable [XR chest portable] Stat Exams 04/21/24 13:16 Taken CBC w/Auto Diff [Complete Blood Count Auto Diff] Stat Lab 04/21/24 13:00 Completed CMP [Comprehensive Metabolic Panel] Stat Lab 04/21/24 13:00 Completed Lipase Stat Lab 04/21/24 13:00 Completed NT Pro Brain Natriuretic Pep. Stat Lab 04/21/24 13:00 Completed Trop I [Troponin I] Stat Lab 04/21/24 13:00 Completed Troponin I Q3H Lab 04/21/24 16:30 Ordered Troponin I Q3H Lab 04/21/24 19:30 Ordered MDM Narrative Medical Decision Narrative: 68-year-old female history of hypertension, hyperlipidemia, CAD presenting with chest pain. Patient states she was driving earlier this morning around 6 or 7 AM when she had acute onset right sided chest pain just under her right clavicle, radiates down toward her right breast. No shortness of breath, nausea, vomiting, but she has felt lightheaded. No syncope. No neurologic deficits. Patient does state that her palms were sweaty at the time which made her more concerned. History was obtained via conversation with patient. On arrival, patient hemodynamically stable, alert, oriented x4, appropriate, GCS 15, moving all extremities spontaneously, pupils equal and reactive to light. Full physical exam performed and significant for very well-appearing female who is in no acute distress. Cardiopulmonary exam within normal limits anteriorly posteriorly bilaterally. No murmurs gallops rubs, pulses equal and symmetric in upper and lower extremities, no lower extremity edema. Differential includes microvascular coronary artery disease, CHF, ACS, AL, coronary artery dissection, pneumothorax, PE, dissection, pericarditis, myocarditis, pneumothorax, aortic aneurysm, pneumonia, bronchitis, among others. Patient was given aspirin, nitroglycerin for symptomatic management and correction of underlying abnormalities. Patient placed on continuous cardiac monitoring and continuous pulse ox with initial blood pressure 195/113, heart rate 1, saturation 98% on room air. Independent interpretation of EKG shows sinus rhythm 92 beats a minute no significant ST or T wave changes concern for acute ischemia. [place] 161, QRS 85, QTc 396. Workup independently interpreted and significant for nonactionable CBC or chemistry. Stable CKD. Troponin undetectable, BNP only mildly elevated to 77. Lipase negative. On independent interpretation of imaging, chest x-ray without acute cardiopulmonary space disease. See radiology read for full review of final results. Heart score 5. On reevaluation, patient blood pressure resolved 130 systolic, having no symptoms at this time. Given patient presentation, workup, history, this most likely represents stable angina. Because undetectable troponin and multiple hours out, repeat troponin was considered, not deemed necessary at this time. Patient has known coronary artery disease, is recommended that she follow-up with the arboreal scientist, she states that she has close follow-up and will call him on Tuesday to schedule further testing. I feel this is appropriate. Close return precautions were given. Because patient at baseline without signs or symptoms of clinical decompensation, deemed appropriate for discharge. Results were relayed to patient who voiced understanding and were agreeable to outpatient management and follow up. I discussed my clinical impression with patient and answered all questions. At this time, the evidence for any other entities in the differential is insufficient to warrant any further testing or ED observation. This was explained as well. Advisory was given that persistent or worsening symptoms require further evaluation. I confirmed the understanding of this discussion. [employer] Developer disclaimer Much of this encounter note is an electronic assistant professor of life sciences spoken language to printed text. Electronic assistant professor of life sciences of the spoken language may permit errors. Although I have reviewed the note, some errors may still exist.
[2024-04-21 13:26] LABS: Basophils # 0.1 K/mm3 (0-0.2); Basophils % 1.5 % (0.1-2.0); Eosinophils # 0.2 K/mm3 (0.0-0.4); Eosinophils % 2.7 % (0.1-12.0); Hematocrit 41.9 % (37.0-47.0); Hemoglobin 13.2 g/dL (12.2-16.2); Lymphocytes % 32.8 % (10-50); Mean Corpuscular HGB Conc 31.5 g/dL (31.8-35.4); Mean Corpuscular Hemoglobin 28.3 pg (27.0-31.2); Mean Corpuscular Volume 89.9 fl (81-99); Mean Platelet Volume 9.4 fl (7.4-10.4); Monocytes # 0.4 K/mm3 (0.1-1.0); Monocytes % 6.3 % (1.7-9.3); Neutrophils # 3.5 K/mm3 (1.8-7.8); Neutrophils % 56.7 % (37.0-80.0); Platelet Count 194 K/mm3 (142-424); Red Blood Count 4.66 M/mm3 (4.20-5.40); Red Cell Distribution Width 14.2 % (11.5-17.5); White Blood Count 6.1 K/mm3 (4.8-10.8)
[2024-04-21] MEDS: ASPIRIN 81MG CHEWABLE TABLET 324 MG PO (13:26)
[2024-04-21] MEDS: NITROGLYCERIN 0.4MG SL TABLET 0.4 MG SL (13:26)
--- NOTE | 2024-04-21 13:32 | PC.NURSE ---
XR AT BEDSIDE
[2024-04-21 13:38] LABS: Chloride 105 mmol/L (98-107)
[2024-04-21 13:39] LABS: Albumin Level 4.4 g/dl (3.5-5.0); Potassium 5.1 mmoL/L (3.5-5.1); Sodium 139 mmol/L (136-145)
[2024-04-21 13:41] LABS: Blood Urea Nitrogen 20 mg/dl (7-17); Creatinine Clearance Estimated 45 mL/min (50-200); Estimated Glomerular Filt Rate 45 ml/min (>60); GFR (African American) 54 ML/MIN (>60)
[2024-04-21 13:42] LABS: Alanine Aminotransferase 23 U/L (12-78); Albumin/Globulin Ratio 1.6 (1.1-1.8); Alkaline Phosphatase 80 U/L (38-126); Anion Gap 8.1 mEq/L (5-15); Aspartate Amino Transferase 39 U/L (14-36); Bilirubin,Total 0.5 mg/dl (0.2-1.3); Calcium 9.2 mg/dl (8.4-10.2); Carbon Dioxide 31 mmol/L (22.0-30.0); Globulin 2.8 g/dL (1.3-3.2); Glucose 97 mg/dl (74-100); Lipase 158 U/L (23-300); Total Protein,Serum 7.2 g/dl (6.3-8.2)
[2024-04-21 13:52] LABS: NT Pro Brain Natriuretic Pep. 277 pg/mL (0-125)
[2024-04-21 13:57] LABS: Troponin I < 0.01 ng/ml (0.00-0.034)
--- NOTE | 2024-04-21 14:13 | PC.NURSE ---
DR RHODES AT BEDSIDE TO UPDATE PT AND FAMILY
== END 2024-04-21 14:40 | disposition home or self-care (01) ==
PROVIDERS: Emergency Provider Emergency Medicine; PCP Physician Assistant
DX: R07.9 Chest pain, unspecified (principal); R06.02 Shortness of breath; R42 Dizziness and giddiness; I25.118 Atherosclerotic heart disease of native coronary artery with other forms of angina pectoris; M06.9 Rheumatoid arthritis, unspecified; E03.9 Hypothyroidism, unspecified; J45.909 Unspecified asthma, uncomplicated; K21.9 Gastro-esophageal reflux disease without esophagitis; I10 Essential (primary) hypertension; E78.5 Hyperlipidemia, unspecified
CPT/HCPCS: 71045; 80053; 83690; 83880; 84484; 85025; 93005; 99285

== ENCOUNTER 2024-05-11 10:54 | Outpatient (CLI) | payer BC, SELFPAY ==
--- NOTE | 2024-05-11 | CA_ITS ---
APPROVED REPORT Exam: Exercise Treadmill Technologist: Penelope Espinal, Ht: 5 ft 2 in Wt: 137 lbs BSA: 1.63 m2 HR: 76 bpm BP: 161/92 mmHg Rhythm: NSR, ST-T abn in lead III and aVF Medical History Medications: Lisinopril,,,,, Levothyroxine,,,,, Aspirin,,,,, AmiTRIPTYLINE,,,,, Nitroglycerin,,,,, Levocetirizine,,,,, CetIRIZINE,,,,, RoSUVASTATIN,,,,, Fexofenadine,,,,, Trelegy,,,,, Epinephrine,,,,, Wixela,,,,, Cardiac Risk Factors: HTN, FHX of CAD Stress Test Details Test: Bassem HR Resting HR: 80 bpm Max Heart Rate (APMHR): 153 bpm Max HR Achieved: 189 bpm Target HR (85% APMHR): 130 bpm % of APMHR: 124 Recovery HR: 140 bpm HR response to stress: Normal HR response to stress BP Resting BP: 153.0/91.0 mmHg Max BP: 164.0/80.0 mmHg Recovery BP: 159.0/76.0 mmHg BP response to stress: Normal blood pressure response to stress. ECG Resting ECG: NSR, ST-T abns in lead 3 and aVF Stress EC mm horizontal ST depression Arrhythmia: PVCs Recovery ECG: Return to baseline within 3 minutes Recovery Arrhythmia: PVCs Clinical Exercise duration: 09:00 min Highest Stage Achieved: Exercise capacity: 10.1 METs Overall Exercise Capacity for Age: Average Stress ECG Conclusion During bassem protocol pt walked 9 minutes. Pt experinced sharp pain around left breast. Ectopy: Rare PVC noted. ST changes: 1mm horizontal ST depression at peak stress Conclusion: Average exercise capacity ECG changes equivocal for ischemia at peak stress. Myoview images reported separately. Test Summary REST . . . . . . . Sitting REST . . . . . . . Standing REST 03:45 0.0 0.0 80 . 153/ 91 . . Stage 1 01:00 10.0 1.7 101 . . . . Stage 1 02:00 10.0 1.7 114 . . . . Stage 1 03:00 10.0 1.7 115 . 164/ 80 . . Stage 2 01:00 12.0 2.5 122 . . . . Stage 2 02:00 12.0 2.5 130 . . . . Stage 2 03:00 12.0 2.5 135 . . . . Stage 3 01:00 14.0 3.4 142 . 160/ 85 . . Stage 3 02:00 14.0 3.4 151 . 160/ 85 . . Stage 3 03:00 14.0 3.4 151 . 160/ 85 . Stop exercise at 09:00 RECOVERY 01:00 0.0 0.0 140 . . . . RECOVERY 02:00 0.0 0.0 121 . 159/ 76 . . RECOVERY 03:00 0.0 0.0 115 . 146/ 78 . . RECOVERY 04:00 0.0 0.0 107 . 146/ 78 . . RECOVERY 05:00 0.0 0.0 100 . 142/ 77 . . RECOVERY 05:20 0.0 0.0 100 . 142/ 77 . . Electronically signed by : Charlee Hathaway MD 05/14/2024 12:26:51
--- NOTE | 2024-05-11 11:02 | CA_ITS ---
APPROVED REPORT EXAM: Comprehensive 2D, Doppler, and color-flow Echocardiogram Rotary Furnace Tender: YAYA Abel, RVS Ht: 5 ft 2 in Wt: 137lbs BSA: 1.63 BP: 145/81 mmHg Indications: CP, CAD, GERD, HTN 2D Dimensions Left Atrium 2.24 cm M-Mode Dimensions RVDd 2.11 cm (0.9-2.6) LA Diam 3.23 cm (1.9-4.0) LVDd 4.96 cm (3.5-5.7) LVDs 3.40 cm (3.5-5.7) IVSd 1.01 cm (0.6-1.1) PWd 1.01 cm (0.6-1.1) EF (Teich) 59.20% EPSs 0.47 cm FS 31.50% EDV (Teich) 116.10 mL TAPSE 1.82 (<1.7) ESV (Teich) 47.40 mL LV Diastology E Decel Time 213 (160-240 msec) E/A Ratio 0.87 MED A' 10.80 cm/s LAT A' 11.30 cm/s Aortic Valve TITO Index 1.07 cm2/m2 AoV Peak Rohit. 126.0 (50-130 cm/s) AO Peak GR. 6.30 mmHg AO Mean GR. 3.20 (<5 mmHg) AO VTI 20.9 (18-25 cm) TITO (VTI) 1.78 (2.5-4.5 cm2) Mitral Valve MV A Velocity 74.0 (40-130 cm/s) E/A Ratio 0.87 Pulmonary Valve DC End VMAX 145.0 cm/s Left Ventricle The left ventricle is normal size. The left ventricular systolic function is normal. The left ventricular ejection fraction is within the normal range. There is normal left ventricular wall thickness. There is normal LV segmental wall motion. The left ventricular diastolic function is normal. LVEF is 55%. Right Ventricle The right ventricle is normal size. The right ventricular systolic function is normal. Atria The left atrium size is normal. The right atrium size is normal. There is no Doppler evidence of interatrial shunt. Aortic Valve Aortic valve opens well. There is no aortic valvular stenosis. No aortic regurgitation is present. Mitral Valve The mitral valve is normal in structure. No evidence of mitral valve stenosis. There is no mitral valve regurgitation noted. Tricuspid Valve The tricuspid valve leaflets are thin and pliable. Trace tricuspid regurgitation. There is insufficient TR jet to estimate RVSP. Pulmonic Valve The pulmonary valve is normal in structure. Trace pulmonic regurgitation. Great Vessels The aortic root is normal in size. The ascending aorta is normal in size. IVC is normal in size and collapses >50% with inspiration. Pericardium There is no pericardial effusion. Other Information Study Quality: Adequate Conclusion Normal biventricular systolic function. No significant valvular stenosis or regurgitation. Electronically signed by : Charlee Hathaway MD 05/14/2024 11:45:29
--- NOTE | 2024-05-11 11:33 | NM_ITS ---
APPROVED REPORT Exam: Nuclear Stress Test Indication: Chest pain, SOB, Palpitations, Fatigue, HTN, High cholesterol, Family history, CAD Patient Location: Outpatient Stress Tech: Penelope Espinal [place] Tech:Mary Choi, ARRT, RT (R)(N) Ht: 5 ft 2 in Wt: 135 lbs Bra Size: 38B HR: 80 bpm BP: 153/91 mmHg BSA: 1.62 m2 TID: 0.97 BMI: 24.6 History: Chest pain, SOB, Palpitations, Fatigue, HTN, High cholesterol, Family history, CAD Procedure: Patient exercised on Robert protocol 9:00 minutes and sec, resting heart rate 80 bpm, resting blood pressure 153/91 mmHg, with exercise maximum heart rate achived was 189 bpm which is 124 % of the maximum predicted heart rate and blood pressure was 164/80 mmHg. Test was stopped due to SOB. Patient denied any complaint of chest pain. Patient has average exercise capacity, achieved 10.1 METs of workload on treadmill, the blood pressure response to exercise was normal. Cardiac Stress and Resting SPECT Images: Cardiac Stress and Resting SPECT images were obtained using technetium 99m Myoview 32.1 mCi stress and 10.86 mCi at rest. Resting and stress imaging in supine and prone positions demonstrate no evidence of fixed or reversible perfusion defects. Gated imaging demonstrates low-normal global LV systolic function. LVEF is calculated at 51%. Conclusion: No evidence of fixed or reversible perfusion defects. Gated imaging demonstrates low-normal global LV systolic function. LVEF is calculated at 51%. Electronically signed by : Charlee Hathaway MD 05/14/2024 12:27:48
[2024-05-11] MEDS: SODIUM CHLORIDE 0.9% 10ML SYR (RAD ONLY) 10 ML IV ×2 (14:04)
[2024-05-11] MEDS: ISOTOPE MYOVIEW (PER STUDY) 1 DOSE IV (14:04)
== END 2024-05-11 23:59 | disposition home or self-care (01) ==
LOC: RT 10:57
PROVIDERS: PCP Physician Assistant; Visit Provider Nurse Practitioner
DX: R07.9 Chest pain, unspecified (principal); R06.00 Dyspnea, unspecified; R94.31 Abnormal electrocardiogram [ECG] [EKG]
CPT/HCPCS: 78452; 93017; 93018; 93306; A9502

== ENCOUNTER 2024-05-30 09:45 | Outpatient (CLI) | payer BC, SELFPAY ==
[2024-05-31 10:14] LABS: Albumin, U <3.0 ug/mL (Not Estab.); Albumin/Creatinine Ratio < 16 mg/g creat (0-29); Creatinine, Urine 19.2 mg/dL (Not Estab.)
[2024-06-01 12:35] LABS: Albumin, U 35.2 % (.); Alpha-1-Globulin, U 10.9 % (.); Alpha-2-Globulin, U 16.6 % (.); Beta Globulin, U 28.7 % (.); Creatinine, Urine 20.1 mg/dL (Not Estab.); Gamma Globulin, U 8.7 % (.); M-Spike, % Not Observed % (Not Observed); Protein,Total,Urine <4.0 mg/dL (Not Estab.)
[2024-06-26 16:06] LABS: PDF: SCANNED IMAGE
== END 2024-05-30 23:59 | disposition home or self-care (01) ==
LOC: LAB.DROPOF 05-31 10:16
PROVIDERS: PCP Internal Medicine; Visit Provider Internal Medicine
DX: N18.9 Chronic kidney disease, unspecified (principal)
CPT/HCPCS: 82043; 82570; 84166

== ENCOUNTER 2024-06-23 13:17 | Emergency (ER) | payer BC, SELFPAY ==
[2024-06-23 13:35] VITALS: BP 107/70; PULSE 89; RESP 19; TEMP 37; O2SAT 99; BMI 24.4
--- NOTE | 2024-06-23 15:00 | ED_ITS ---
Discharge Plan Disposition Patient Disposition: Home, Self-Care Condition: Good Prescriptions Prescriptions: New methylprednisolone [Methylpred DP] 4 mg tablets,dose pack See Rx Instructions .ROUTE .COMPLEX Qty: 21 0RF Rx Instructions: Take according to package instructions amoxicillin-pot clavulanate 875-125 mg tablet 1 tab PO Q12H 10 Days Qty: 20 0RF benzonatate 100 mg capsule 100 mg PO TID PRN (Reason: cough) Qty: 60 0RF No Action fexofenadine 180 mg tablet 180 mg PO DAILY Patient Comments: TAKE 1 TABLET BY MOUTH ONCE DAILY omeprazole 40 mg capsule,delayed release(DR/EC) 40 mg PO DAILY Patient Comments: TAKE 1 CAPSULE BY MOUTH ONCE DAILY FOR REFLUX/ACID REFLUX triamcinolone acetonide 0.025 % cream 1 applic TOPICAL BID Patient Comments: APPLY CREAM TOPICALLY TWICE DAILY levothyroxine 50 mcg tablet 50 mcg PO DAILY Patient Comments: TAKE 1 TABLET BY MOUTH ONCE DAILY lisinopril 10 mg tablet 10 mg PO BID Patient Comments: TAKE 1 TABLET BY MOUTH TWICE DAILY gabapentin 300 mg capsule 300 mg PO TID Patient Comments: TAKE 1 CAPSULE BY MOUTH THREE TIMES DAILY escitalopram oxalate 10 mg tablet 10 mg PO DAILY Patient Comments: TAKE 1 TABLET BY MOUTH ONCE DAILY rosuvastatin 10 mg tablet 10 mg PO HS Patient Comments: TAKE 1 TABLET BY MOUTH ONCE DAILY lactulose [Constulose] 10 gram/15 mL solution 10 g PO DAILY Patient Comments: TAKE 15 SOLUTION BY MOUTH ONCE DAILY NEEDED FOR CONSTIPATION; MAY SLOWLY INCREASE TO 20 OR 30 ML DAILY NEEDED. RESULTS MAY TAKE 24 HOURS. levocetirizine 5 mg tablet 5 mg PO DAILY Patient Comments: TAKE 1 TABLET BY MOUTH ONCE DAILY Trelegy Ellipta 200-62.5-25 mcg blister with device 1 ea INHALATION DAILY Patient Comments: INHALE 1 PUFF ONCE DAILY DIRECTED Referrals Follow up/Referrals: Jerome Donaldson DO [Primary Care Provider] - See instructions Activity Restrictions/Add. Instructions Additional Instructions/Restrictions: Take medication as prescribed. Increase fluids and rest. Follow up with PCP or return to [facility] if symptoms persist or worsen. If you have shortness of air, return to the ER. Clinical Impressions Clinical Impression: Acute lower respiratory infection Instructions Patient Instructions: Acute Bronchitis Print Language Print Language: Puerto Rican Discharge ED Provider: Antonina Mcdermott [facility] HPI General Stated complaint: cough, heavy chest, congestion Mode of Arrival: Ambulatory Source of Information: Patient Limitations: No Limitations Time Seen by Provider: 06/23/24 14:55 Description of Symptoms (Recalled from Triage Doc. by RN): PATIENT C/O COUGH AND CHEST CONGESTION X 3 DAYS HEENT Symptoms (Recalled from RN notes): No Resp Symptoms (Recalled from RN notes): Yes Skin Symptoms (Recalled from RN notes): No MS Symptoms (Recalled from RN notes): No Functional Status (Recalled from RN notes): WNL History of Present Illness Provider Complaint: Pt reports that for the last 3-4 days she has had a strong non-productive cough. She reports that she is losing her voice. She states that she has a hard time laying down because she can't hardly breathe. She reports that the cough is keeping her up at night. Pt states that she has tried OTC cough medication, but this has not helped. Related Data Home Medications ?Medication ?Instructions ?Recorded ?Confirmed escitalopram oxalate 10 mg tablet 10 mg PO DAILY 06/23/24 06/23/24 fexofenadine 180 mg tablet 180 mg PO DAILY 06/23/24 06/23/24 fluticasone fur. 200 mcg-umeclid 1 ea inhalation DAILY 06/23/24 06/23/24 62.5 mcg-vilant 25 mcg inhalat.powder (Trelegy Ellipta) gabapentin 300 mg capsule 300 mg PO TID 06/23/24 06/23/24 lactulose 10 gram/15 mL oral 10 g PO DAILY 06/23/24 06/23/24 solution (Constulose) levocetirizine 5 mg tablet 5 mg PO DAILY 06/23/24 06/23/24 levothyroxine 50 mcg tablet 50 mcg PO DAILY 06/23/24 06/23/24 lisinopril 10 mg tablet 10 mg PO BID 06/23/24 06/23/24 omeprazole 40 mg capsule,delayed 40 mg PO DAILY 06/23/24 06/23/24 release rosuvastatin 10 mg tablet 10 mg PO HS 06/23/24 06/23/24 triamcinolone acetonide 0.025 % 1 applic topical BID 06/23/24 06/23/24 topical cream Previous Rx's ?Medication ?Instructions ?Recorded amoxicillin 875 mg-potassium 1 tab PO Q12H 10 days #20 tabs 11/09/24 clavulanate 125 mg tablet benzonatate 100 mg capsule 100 mg PO TID PRN cough #60 caps 06/23/24 methylprednisolone 4 mg tablets in See Rx Instructions .Route 06/23/24 a dose pack (Methylpred DP) .COMPLEX #21 tabs Allergies Allergy/AdvReac Type Severity Reaction Status Date / Time povidone-iodine Allergy Mild Blister Verified 06/06/24 13:47 [From Betadine] Iodinated Contrast Media Allergy Verified 06/06/24 13:47 iodine Allergy Verified 06/06/24 13:47 buspirone [From BuSpar] AdvReac Intermediate Verified 06/06/24 13:47 codeine AdvReac Intermediate Verified 06/06/24 13:47 morphine AdvReac Intermediate Verified 06/06/24 13:47 Worker's Comp Is this a Worker's Comp case?: No [facility] Disclaimer: The information contained in this section may have been updated after the patient was seen, as this information can be updated by other users. Medical History Numbness and tingling in right hand Right wrist pain Coronary artery disease Typical angina Abnormal result of cardiovascular function study Elevated d-dimer Right flank mass CASSI (acute kidney injury) Serum potassium elevated Osteoporosis RA (rheumatoid arthritis) Asthma History of left heart catheterization GERD (gastroesophageal reflux disease) Arthritis Hypothyroidism Seasonal allergies Hypertension Surgical History Hx of appendectomy History of cholecystectomy History of hysterectomy H/O knee surgery H/O wrist surgery H/O neck surgery History of back surgery Family History Other Family history of cardiac disorder Social History Smoking Status: Never smoker alcohol intake: never substance use type: denies use current occupational status: retired Travel in the last 8 weeks: None caffeine: Yes ROS Obtained: Yes All systems reviewed & no additional complaints except as documented Constitutional Constitutional: Reports system reviewed and no additional complaints, except as documented and Reports malaise Eyes Eyes: Reports system reviewed and no additional complaints, except as documented ENT Ears, Nose, Mouth, and Throat: Reports system reviewed and no additional complaints, except as documented, Reports change in voice and Reports nasal discharge Cardiovascular Cardiovascular: Reports system reviewed and no additional complaints, except as documented Respiratory Respiratory: Reports system reviewed and no additional complaints, except as documented, Reports shortness of breath, Reports chest congestion and Reports non-productive cough Gastrointestinal Gastrointestingal: Reports system reviewed and no additional complaints, except as documented Genitourinary Female Genitourinary: Reports system reviewed and no additional complaints, except as documented Musculoskeletal Musculoskeletal: Reports system reviewed and no additional complaints, except as documented Integumentary/Breasts Skin/Breast: Reports system reviewed and no additional complaints, except as documented Neurologic Neurologic: Reports system reviewed and no additional complaints, except as documented Endocrine Endocrine: Reports system reviewed and no additional complaints, except as documented Hematologic/Lymphatic Henatologic/Lymphatic: Reports system reviewed and no additional complaints, except as documented Allergic/Immunologic Allergic/Immunologic: Reports system reviewed and no additional complaints, except as documented Physical Exam General General appearance: alert Comment: ill appearing Head Head exam: atraumatic and normocephalic Eye Eye exam: Present normal appearance ENT ENT exam: Present mucous membranes moist Expanded ENT Exam External ear exam: Present normal external inspection Nasal speculum exam: Bilateral: other (clear drainage) Mouth exam: Present normal external inspection Teeth exam: Present normal inspection Throat exam: Present normal inspection Neck Neck exam: Present normal inspection Chest Chest inspection: Present normal inspection and symmetric chest wall rise Respiratory Respiratory exam: Present other (course sounds throughout) Expanded Respiratory Exam Location: Left: rales, Right: rales and Lower: rales Cardiovascular Cardiovascular exam: Present regular rate and normal rhythm Abdominal Exam Abdominal exam: Present soft and normal bowel sounds Extremities Exam Extremities exam: Present normal inspection Back Exam Back exam: Present normal inspection Neurological Exam Neurological exam: Present alert and oriented X3 Psychiatric Psychiatric exam: Present normal affect and normal mood Skin Skin exam: Present warm, dry and intact Lymphatic Lymphatic Findings: no adenopathy Medical Decision Making Medical Records Screening: Per USPSTF and CDC recommendations, given the prevalence of disease in our region, it is our hospital?s policy to screen for HIV and viral Hepatitis for all patients aged 18 and over and those with ongoing risk factors. Zenon Inquiry Pt receiving controlled substance: No Zenon was queried for this patient: No Vital Signs: 06/23/24 13:35 Temperature 98.6 F Temperature Source Oral Pulse Rate [Left Brachial] 89 Respiratory Rate 19 Blood Pressure [Left Arm] 107/70 L Blood Pressure Mean [Left Arm] 82 Blood Pressure Source [Left Arm] Automatic Cuff Blood Pressure Position [Left Arm] Sitting 02 Sat by Pulse Oximetry 99 Oxygen Delivery Method Room Air
[2024-06-23 15:12] VITALS: BP 107/70; PULSE 89; RESP 19; TEMP 37; O2SAT 99
== END 2024-06-23 15:18 | disposition home or self-care (01) ==
PROVIDERS: Emergency Provider Nurse Practitioner Family; PCP Internal Medicine
DX: J06.9 Acute upper respiratory infection, unspecified (principal)
CPT/HCPCS: 99213; G0381

== ENCOUNTER 2024-07-05 13:33 | Outpatient (CLI) | payer BC, SELFPAY ==
[2024-07-05 14:24] LABS: Hemoglobin A1C 5.6 % (4.0-6.0)
== END 2024-07-05 23:59 | disposition home or self-care (01) ==
LOC: LAB.DROPOF 13:33
PROVIDERS: PCP Internal Medicine; Visit Provider Internal Medicine
DX: Z13.1 Encounter for screening for diabetes mellitus (principal)
CPT/HCPCS: 83036

== ENCOUNTER 2024-08-17 10:39 | Outpatient (CLI) | payer BC, SELFPAY ==
--- NOTE | 2024-08-17 10:41 | XR_ITS ---
FINAL REPORT CLINICAL HISTORY: lumbar spine pain COMPARISON: 09/10/2023 FINDINGS: 3 views of the lumbar spine were obtained. There are postoperative changes at L5-S1. There is no acute fracture or malalignment. Vertebral body height is preserved. There is degenerative disc disease most pronounced at L4-5 and L5-S1 that appears progressed from the prior exam. No acute paraspinal abnormality. IMPRESSION: Postoperative changes and degenerative disc disease which is slightly worse compared to prior exam. Reviewed, Interpreted and Dictated by Whit Haider MD Transcribed by Mirna Beckman Authenticated and [facility]
== END 2024-08-17 23:59 | disposition home or self-care (01) ==
LOC: RAD 10:40
PROVIDERS: PCP Internal Medicine; Visit Provider Internal Medicine
DX: M54.9 Dorsalgia, unspecified (principal)
CPT/HCPCS: 72100

== ENCOUNTER 2024-09-20 09:52 | Outpatient (CLI) | payer BC, SELFPAY ==
[2024-09-20 10:17] LABS: Basophils # 0.1 K/mm3 (0-0.2); Basophils % 1.1 % (0.1-2.0); Eosinophils # 0.1 K/mm3 (0.0-0.4); Eosinophils % 2.5 % (0.1-12.0); Hematocrit 36.5 % (37.0-47.0); Hemoglobin 11.8 g/dL (12.2-16.2); Lymphocytes # 1.1 K/mm3 (0.7-4.5); Lymphocytes % 23.9 % (10-50); Mean Corpuscular HGB Conc 32.3 g/dL (31.8-35.4); Mean Corpuscular Hemoglobin 28.2 pg (27.0-31.2); Mean Corpuscular Volume 87.3 fl (81-99); Mean Platelet Volume 11.7 fl (7.4-10.4); Monocytes # 0.6 K/mm3 (0.1-1.0); Monocytes % 12.8 % (1.7-9.3); Neutrophils # 2.6 K/mm3 (1.8-7.8); Neutrophils % 59.5 % (37.0-80.0); Platelet Count 189 K/mm3 (142-424); Red Blood Count 4.18 M/mm3 (4.20-5.40); White Blood Count 4.4 K/mm3 (4.8-10.8)
[2024-09-25 04:24] LABS: Immunoglobulin E, Total 45 IU/mL (6-495)
== END 2024-09-20 23:59 | disposition home or self-care (01) ==
LOC: LAB 09:53
PROVIDERS: PCP Internal Medicine; Visit Provider Nurse Practitioner
DX: E55.9 Vitamin D deficiency, unspecified (principal); J45.50 Severe persistent asthma, uncomplicated
CPT/HCPCS: 36415; 82306; 82785; 85025

== ENCOUNTER 2024-11-15 15:43 | Outpatient (CLI) | payer BC, SELFPAY ==
--- NOTE | 2024-11-15 15:47 | XR_ITS ---
FINAL REPORT CLINICAL HISTORY: Fall, knee pain tender to touch COMPARISON: None FINDINGS: Three views of the left knee were obtained. Lucency at the base of the tibial spine, nondisplaced fracture questioned. Recommend CT correlation. A small joint effusion is noted. There is moderate degenerative change of the medial compartment. Chondrocalcinosis is noted. There is osteopenia. IMPRESSION: Possible fracture base of the tibial spine. Recommend CT correlation. Reviewed, Interpreted and Dictated by Pravni Madison MD Transcribed by Izabela Brown Authenticated and [facility]
== END 2024-11-15 23:59 | disposition home or self-care (01) ==
LOC: RAD 15:43
PROVIDERS: PCP Internal Medicine; Visit Provider Internal Medicine
DX: M25.562 Pain in left knee (principal)
CPT/HCPCS: 73562

== ENCOUNTER 2024-11-19 11:23 | Outpatient (CLI) | payer BC, SELFPAY ==
[2024-11-19 11:51] LABS: Basophils # 0.1 K/mm3 (0-0.2); Basophils % 1.1 % (0.1-2.0); Eosinophils # 0.2 K/mm3 (0.0-0.4); Eosinophils % 3.4 % (0.1-12.0); Hematocrit 37.3 % (37.0-47.0); Hemoglobin 11.9 g/dL (12.2-16.2); Lymphocytes # 1.8 K/mm3 (0.7-4.5); Mean Corpuscular HGB Conc 31.9 g/dL (31.8-35.4); Mean Corpuscular Hemoglobin 27.2 pg (27.0-31.2); Mean Corpuscular Volume 85.2 fl (81-99); Mean Platelet Volume 11.9 fl (7.4-10.4); Monocytes # 0.5 K/mm3 (0.1-1.0); Monocytes % 10.1 % (1.7-9.3); Neutrophils # 2.7 K/mm3 (1.8-7.8); Neutrophils % 51.2 % (37.0-80.0); Platelet Count 192 K/mm3 (142-424); Red Blood Count 4.38 M/mm3 (4.20-5.40); Red Cell Distribution Width 12.4 % (11.5-17.5); White Blood Count 5.3 K/mm3 (4.8-10.8)
[2024-11-19 12:10] LABS: Alanine Aminotransferase 23 U/L (12-78); Albumin Level 4.1 g/dl (3.5-5.0); Albumin/Globulin Ratio 1.6 (1.1-1.8); Alkaline Phosphatase 76 U/L (38-126); Anion Gap 10.9 mEq/L (5-15); Aspartate Amino Transferase 32 U/L (14-36); Bilirubin,Total 0.8 mg/dl (0.2-1.3); Blood Urea Nitrogen 24 mg/dl (7-17); Carbon Dioxide 28 mmol/L (22.0-30.0); Chloride 105 mmol/L (98-107); Chol/HDL Ratio 2.9 (1-3.5); Cholesterol 206 mg/dl (140-200); Estimated Glomerular Filt Rate 50 ml/min (>60); GFR (African American) 60 ML/MIN (>60); Globulin 2.6 g/dL (1.3-3.2); Glucose 89 mg/dl (74-100); HDL Cholesterol 70 mg/dl (40-60); Potassium 5.9 mmoL/L (3.5-5.1); Sodium 138 mmol/L (136-145); Total Protein,Serum 6.7 g/dl (6.3-8.2); Triglycerides 153 mg/dl (30-150); VLDL Cholesterol 31 mg/dL (0-40)
== END 2024-11-19 23:59 | disposition home or self-care (01) ==
LOC: LAB 11:24
PROVIDERS: PCP Internal Medicine; Visit Provider Internal Medicine
DX: Z00.00 Encounter for general adult medical examination without abnormal findings (principal); Z13.220 Encounter for screening for lipoid disorders
CPT/HCPCS: 36415; 80053; 80061; 85025

== ENCOUNTER 2024-12-06 06:31 | Outpatient (CLI) | payer BC, SELFPAY ==
--- NOTE | 2024-12-06 07:00 | CT_ITS ---
FINAL REPORT TECHNIQUE: Thin section axial images were obtained through the left lower extremity without contrast. Reconstruction images were obtained from the axial data. Exam was performed using dose reduction technique. CLINICAL HISTORY: Fall, suspected fracture on XR, continued pain FINDINGS: There is no acute fracture or dislocation. No acute osseous abnormality is identified. There is tricompartment degenerative joint disease. Chondrocalcinosis is identified. There is a small joint effusion. There is atrophy involving the medial head of the gastrocnemius muscle which is nonspecific. The remaining soft tissues are without acute abnormality. IMPRESSION: Degenerative joint disease. No fracture identified. Reviewed, Interpreted and Dictated by Whit Haider MD Transcribed by Lyndsey Carroll Authenticated and [facility]
== END 2024-12-06 23:59 | disposition home or self-care (01) ==
LOC: RAD 06:32
PROVIDERS: PCP Internal Medicine; Visit Provider Internal Medicine
DX: M17.12 Unilateral primary osteoarthritis, left knee (principal)
CPT/HCPCS: 73700

== ENCOUNTER 2025-02-13 13:11 | Emergency (ER) | payer BC, SELFPAY ==
[2025-02-13 13:25] VITALS: BP 112/62; PULSE 72; RESP 15; O2SAT 98
[2025-02-13 13:42] VITALS: BP 118/63; PULSE 70; RESP 16; TEMP 37.1; O2SAT 99; BMI 24.0
--- NOTE | 2025-02-13 13:50 | ED_ITS ---
<Statement entered by Norbert Vivar MD - 02/13/25 17:13> I was consulted by the CHRISTOPHER, and we discussed the complexity of problems being addressed. I approved the treatment and management plan for this patient's care in the emergency department, thus performing a substantial portion of the medical decision making. I was available for all aspects of the procedure. Norbert Vivar MD Discharge Plan Disposition Patient Disposition: Home, Self-Care Prescriptions Prescriptions: New cephalexin 500 mg capsule 500 mg PO BID 7 Days Qty: 14 0RF No Action albuterol sulfate 90 mcg/actuation HFA aerosol inhaler inhalation aspirin [Adult Low Dose Aspirin] 81 mg tablet,delayed release (DR/EC) 81 mg PO DAILY ascorbate calcium (vitamin C) 500 mg tablet 500 mg PO DAILY calcium citrate-vitamin D3 [Calcium Citrate + D] 315 mg-5 mcg (200 unit) tablet 2 tab PO BID Centrum Complete 18-400 mg-mcg tablet 1 tab PO DAILY glucosamine-chondroitin 900 mg tablet PO BID magnesium oxide 400 mg magnesium tablet 400 mg PO DAILY fexofenadine 180 mg tablet 180 mg PO DAILY Patient Comments: TAKE 1 TABLET BY MOUTH ONCE DAILY epinephrine 0.3 mg/0.3 mL auto-injector 0.3 mg IM Q10-15M PRN Patient Comments: INJECT CONTENTS OF 1 PEN INTRAMUSCULARLY NEEDED FOR ALLERGIC REACTION budesonide-formoterol 160-4.5 mcg/actuation HFA aerosol inhaler 2 inh inhalation BID Patient Comments: INHALE 2 PUFFS BY MOUTH TWICE DAILY RINSE MOUTH AFTER USE omeprazole 40 mg capsule,delayed release(DR/EC) 40 mg PO DAILY Qty: 90 3RF tramadol 50 mg tablet 50 mg PO Q8H PRN (Reason: pain) Qty: 21 0RF Trelegy Ellipta 200-62.5-25 mcg blister with device See Rx Instructions .ROUTE .COMPLEX Qty: 60 0RF Dose Instruction: Inhale 1 puff by mouth once daily Rx Instructions: Inhale 1 puff by mouth once daily levothyroxine 50 mcg tablet 50 mcg PO DAILY Patient Comments: TAKE 1 TABLET BY MOUTH ONCE DAILY lisinopril 10 mg tablet 10 mg PO BID Patient Comments: TAKE 1 TABLET BY MOUTH TWICE DAILY rosuvastatin 10 mg tablet 10 mg PO HS Patient Comments: TAKE 1 TABLET BY MOUTH ONCE DAILY Referrals Follow up/Referrals: Jerome Donaldson DO [Primary Care Provider, Family Practice] - See instructions Clinical Impressions Clinical Impression: Laceration Stand Alone Forms Stand Alone Forms: Work/School Release Instructions Patient Instructions: DI for Laceration Repair Print Language Print Language: Danish Discharge ED Provider: Norbert Vivar General Adult HPI General Chief complaint: Wound/Laceration Stated complaint: AO 02/13/25. Cut R hand. Sent by [facility] Time Seen by Provider: 02/13/25 13:35 Mode of Arrival: Ambulatory Source of Information: Patient Description of Symptoms (Recalled from ER Triage Doc. by RN): Patient states about 0830 this morning she hit the top of her right hand on a trailer, patient with a laceration to top of right hand. History of Present Illness HPI narrative: patient is a 69-year-old female who presents to the ED for a laceration on the anterior aspect of her right hand. Patient states she hit her hand on the trailer, causing a irregular laceration. She states that her tetanus is not up-to-date. Related Data Home Medications ?Medication ?Instructions ?Recorded ?Confirmed levothyroxine 50 mcg tablet 50 mcg PO DAILY 06/23/24 0 02/13/25 lisinopril 10 mg tablet 10 mg PO BID 06/23/24 rosuvastatin 10 mg tablet 10 mg PO HS 06/23/24 5 albuterol sulfate 90 mcg/actuation inhalation 07/17/24 02/13/25 aerosol inhaler antiarthritic combination no.2 900 mg PO BID 07/17/24 02/13/25 mg tablet (glucosamine-chondroitin) ascorbate calcium (vitamin C) 500 500 mg PO DAILY 11/0502/13/25 mg tablet aspirin 81 mg tablet,delayed 81 mg PO DAILY 07/17/24 0 02/13/25 release (Adult Low Dose Aspirin) calcium 315 mg (as 2 tab PO BID 07/17/24 citrate)-vitamin D3 5 mcg (200 unit) tablet (Calcium Citrate + D) magnesium oxide 400 mg PO DAILY 07/17/2410/09 multivitamin-ferrous 1 tab PO DAILY 07/17/2410/09 fumarate-folic acid 18 mg-400 mcg tablet (Centrum Complete) budesonide-formoterol HFA 160 2 inh inhalation BID 04/ 03/25 07/02/25 mcg-4.5 mcg/actuation aerosol inhaler epinephrine 0.3 mg/0.3 mL 0.3 mg IM Q10-15M PRN 02/13/25 injection, auto-injector fexofenadine 180 mg tablet 180 mg PO DAILY 11/15/24 Previous Rx's ?Medication ?Instructions ?Recorded omeprazole 40 mg capsule,delayed 40 mg PO DAILY #90 ca ps 11/15/24 release tramadol 50 mg tablet 50 mg PO Q8H PRN pain #21 ta bs 11/15/24 fluticasone fur. 200 mcg-umeclid See Rx Instructions . Route 02/12/25 62.5 mcg-vilant 25 mcg .COMPLEX #60 ea inhalat.powder (Trelegy Ellipta) cephalexin 500 mg capsule 500 mg PO BID 7 days #14 cap s 02/13/25 Allergies Allergy/AdvReac Type Severity Reaction Status Date / Time povidone-iodine (From Allergy Mild Blister Verified 02/13/25 12:43 Betadine) Iodinated Contrast Media Allergy Unknown Verified 02/13/25 13:47 allergy reaction iodine Allergy Unknown Verified 02/13/25 13:47 allergy reaction buspirone (From BuSpar) AdvReac Intermediate Unknown Verified 02/13/25 13:47 allergy reaction codeine AdvReac Intermediate Unknown Verified 02/13/25 13:47 allergy reaction morphine AdvReac Intermediate Unknown Verified 02/13/25 13:47 allergy reaction adhesive tape AdvReac Mild Rash Verified 02/13/25 13:47 PFSH PFS Disclaimer: The information contained in this section may have been updated after the patient was seen, as this information can be updated by other users. Medical History Dyspnea on exertion Impacted cerumen, bilateral Hearing difficulty of both ears Numbness and tingling in right hand Right wrist pain Coronary artery disease Typical angina Abnormal result of cardiovascular function study Elevated d-dimer Right flank mass CASSI (acute kidney injury) Serum potassium elevated Osteoporosis RA (rheumatoid arthritis) Asthma History of left heart catheterization GERD (gastroesophageal reflux disease) Arthritis Hypothyroidism Seasonal allergies Hypertension Surgical History History of tonsillectomy and adenoidectomy Hx of appendectomy History of cholecystectomy History of hysterectomy H/O knee surgery H/O wrist surgery H/O neck surgery History of back surgery Family History Other Family history of cardiac disorder Social History Smoking Status: Never smoker alcohol intake: never substance use type: denies use current occupational status: retired Travel in the last 8 weeks?: None caffeine: Yes Have you lived/traveled outside [place] in past 30 days?: No Contact w/someone who lives/traveled outside [place] past 30 days?: No Exposure to someone with infectious disease in past 14 days?: No Do you have a fever (greater than 100.4 F or 38 C)?: No Have you tested positive for COVID-19?: No Exposed to someone with COVID-19 in past 14 days?: No Do you have a sore throat?: No Do you have a cough?: No Do you have any weakness?: No Do you have any diarrhea?: No Are you experiencing any unusual bleeding?: No Do you have any muscle aches/pain?: No Do you have any abdominal pain?: No Are you experiencing loss of taste or smell?: No Other Medical History Have you received the Flu Vaccine for this season: No Have you received the Pneumonia Vaccine: No ROS Obtained: Yes Systems reviewed as appropriate & no additional complaints except as documented Physical Exam General General appearance: alert and in no apparent distress Head Head exam: atraumatic and normocephalic Eye Eye exam: Present normal appearance and PERRL ENT ENT exam: Present normal exam Neck Neck exam: Present normal inspection Chest Chest inspection: Present normal inspection and symmetric chest wall rise; Absent tenderness Respiratory Respiratory exam: Present normal lung sounds bilaterally Cardiovascular Cardiovascular exam: Present regular rate Abdominal Exam Abdominal exam: Present soft and normal bowel sounds; Absent tenderness Extremities Exam Extremities exam: Present normal inspection and full ROM Back Exam Back exam: Present normal inspection and full ROM Neurological Exam Neurological exam: Present alert and oriented X3 Psychiatric Psychiatric exam: Present normal affect and normal mood Skin Skin exam: Present dry and other (3 cm irregular lac on anterior R hand ) Medical Decision Making Medical Records Screening: Per USPSTF and CDC recommendations, given the prevalence of disease in our region, it is our hospital?s policy to screen for HIV and viral Hepatitis for all patients aged 18 and over and those with ongoing risk factors. Zenon Inquiry Pt receiving controlled substance: No Vital Signs: 02/13/25 13:25 02/13/25 13:42 Temperature 98.8 F Temperature Source Oral Pulse Rate 72 Pulse Rate [Right Brachial] 70 Respiratory Rate 15 16 Blood Pressure 112/62 Blood Pressure [Right Arm] 118/63 Blood Pressure Mean [Right Arm] 81 Blood Pressure Source Automatic Cuff Blood Pressure Source [Right Arm] Automatic Cuff Blood Pressure Position [Right Arm] Sitting 02 Sat by Pulse Oximetry 98 99 Oxygen Delivery Method Room Air Room Air Orders (Tests/Meds): ED MEDICATIONS Discontinued Medications Generic Name Dose Route Start Last Admin Trade Name Freq PRN Reason Stop Dose Admin Acetaminophen 1,000 mg 02/13/25 13:45 02/13/25 14:27 Acetaminophen 500mg Tab PO 02/13/25 13:46 1,000 mg ONCE ONE Administration Cocaine HCl 1 ml 02/13/25 13:51 02/13/25 14:06 Cocaine 4% Topical Soln 4ml Bottle TP 02/13/25 13:52 1 ml ONCE ONE Administration Epinephrine HCl 1 mg 02/13/25 13:51 02/13/25 14:06 Epinephrine 1 Mg/Ml Ampul TP 02/13/25 13:52 1 mg ONCE ONE Administration Lidocaine HCl 1 ml 02/13/25 13:51 02/13/25 14:06 Lidocaine 2% Urojet 10ml TP 02/13/25 13:52 1 ml ONCE ONE Administration Tetanus/Diphtheria Toxoids 0.5 ml 02/13/25 13:44 02/13/25 14:12 Tetanus-Diphth Toxoid, Adult 0.5ml Syr IM 02/13/25 13:45 0.5 ml .ONCE ONE Administration Medical Decision Narrative: In summary, patient is a 69-year-old female who presents to the ED for a laceration on the anterior aspect of her right hand. Patient states she hit her hand on the trailer, causing a irregular laceration. She states that her tetanus is not up-to-date. Bleeding is controlled upon arrival. She denies any other complaints at this time. She has full range of motion of her right hand. No numbness or tingling. She reports she has had sutures in the past. Denies fever, chills, bodyaches, decreased ROM, decreased neurovascular status. Upon initial evaluation patient is alert, oriented and cooperative. Hemodynamically stable. Has approximately 3 cm irregular laceration on the anterior aspect of right hand. Full ROM of hand. Neurovascular status intact. The area was numbed with topical lidocaine. Cleaned with Hibiclens. I used 5.0 Ethilon sutures placed, 7 sutures in total. Patient tolerated the procedure well. We discussed that she will need to have the sutures removed in 7 to 10 days. We discussed signs and symptoms of infection to monitor for. Advised her to follow-up with her PCP. Discussed return precautions to the ED Critical Care Critical Care Time Critical Care Time: No
[2025-02-13] MEDS: LIDOCAINE 2% UROJET 10ML TP (14:06)
[2025-02-13] MEDS: COCAINE 4% TOPICAL SOLN 4ML BOTTLE 1 ML TP (14:06)
[2025-02-13] MEDS: TETANUS-DIPHTH TOXOID, ADULT 0.5ML SYR 0.5 ML IM (14:12)
[2025-02-13] MEDS: ACETAMINOPHEN 500MG TAB 1000 MG PO (14:27)
[2025-02-13 15:38] VITALS: BP 118/63; PULSE 70; RESP 16; TEMP 37.1; O2SAT 99
== END 2025-02-13 15:40 | disposition home or self-care (01) ==
PROVIDERS: Emergency Provider Emergency Medicine; PCP Internal Medicine
DX: S61.411A Laceration without foreign body of right hand, initial encounter (principal); W22.8XXA Striking against or struck by other objects, initial encounter; Z23 Encounter for immunization
CPT/HCPCS: 12002; 90471; 90714; 99283; J0171